=== PATIENT | male | born 1970 | race Caucasian/White ===

== ENCOUNTER 2017-10-05 07:58 | Observation (INO) | payer MEDICAID, SELFPAY ==
[2017-10-05] VITALS (8 sets, daily range): BP systolic 117–172; BP diastolic 51–95; PULSE 62–74; RESP 15–20; TEMP 36.4–37.4; O2SAT 93–99; BMI 34.2; BMI 34.7
--- NOTE | 2017-10-05 08:23 | EKG12_ITS ---
Test Reason : CP Blood Pressure : / mmHG Vent. Rate : 062 BPM Atrial Rate : 062 BPM P-R Int : 130 ms QRS Dur : 106 ms QT Int : 432 ms P-R-T Axes : 004 023 008 degrees QTc Int : 438 ms Normal sinus rhythm Normal ECG Confirmed by JT RAMIREZ ([id number]), video tape editor CARLOS BRUMFIELD ([id number]) on 10/10/2017 2:56:36 PM Referred By: GEOVANNI Confirmed By:JT RAMIREZ
[2017-10-05] MEDS: 0.9% Normal Saline 1,000 ML 125 ML IV ×2 (08:34→19:49)
[2017-10-05 08:43] LABS: Absolute Lymphocyte Count 1.96 X10^3/ul (0.83-4.51); Absolute Neutrophil Count 9.3 X10^3/uL (2.0-7.7); Basophil# 0.01 X10^3/uL; Basophil% 0.1 % (0-1); Eosinophil# 0.07 X10^3/uL; Eosinophils% 0.6 % (0-5); Hematocrit 43.2 % (40-54); Hemoglobin 15.1 g/dl (13.0-16.5); Lymphocyte # 1.96 X10^3/ul (4.0); Lymphocyte % 16.3 % (19-41); Mean Corpuscular Hgb 32.8 pg (27.0-32.0); Mean Corpuscular Volume 93.7 fL (80-94); Mean Platelet Vol. 10.5 fl (6.2-12.0); Monocyte# 0.68 X10^3/uL; Monocyte% 5.6 % (0-10); Neutrophil % 77.2 % (47-70); POSITIVE COUNT NO; POSITIVE DIFFERENTIAL NO; POSITIVE MORPHOLOGY NO; Platelet Count 264 K/mm3 (150-450); RBC Distribution Width CV 11.7 % (11.6-14.6); RBC Distribution Width SD 39.6 fl (35.1-43.9); Red Blood Count 4.61 M/mm3 (4.6-6.2)
[2017-10-05 09:00] LABS: AST(SGOT) 10 U/L (15-37); Alanine Aminotransfer ALT/SGPT 15 U/L (12-78); Albumin, Serum 3.4 g/dL (3.4-5.0); Alkaline Phosphatase 67 U/L (45-117); Anion Gap 8 (5-15); BUN 13 mg/dL (7-18); BUN/Creat Ratio 11.6 RATIO (10-20); Calcium,Total 8.1 mg/dL (8.5-10.1); Chloride 107 mmol/L (98-107); Creatinine, Serum 1.12 mg/dL (0.70-1.30); EST Glomerular Filtration Rate 75 mL/min (>60); Est Glom Filt Rate - Afr Amer 90 mL/min (>60); Globulin 3.4 g/dL (2.2-4.2); Glucose 120 mg/dL (70-110); Lipase 159 U/L (73-393); Potassium 3.3 mmol/L (3.5-5.1); Protein, Total 6.8 g/dL (6.4-8.2); Sodium Level 141 mmol/L (136-145)
--- NOTE | 2017-10-05 09:17 | ED.VISSUMM ---
- ER Visit Summary Date of Service: 10/05/17 Chief Complaint: [Abdominal pain] History of Present Illness: The patient is a 47 M [presents to the emergency department chief complaint of epigastric abdominal pain and burning that radiates into his chest. Patient symptoms started about 4 days ago. Patient was seen in the emergency department by myself 2 days ago for the same complaint and had a significant workup including labs and CT scan of the abdomen pelvis. Patient also states that prior to all the abdominal discomfort he developed a rash for which he was seen by his primary care physician and then went to [facility] as well for it. Patient tells me he was started on prednisone and something for the itching. Patient is also on omeprazole and I started him on Carafate after our initial encounter 2 days ago in the emergency department. Patient continues to vomit. Patient continues to have burning epigastric pain. He denies any chest pain. Patient was noted to have on CT scan a hiatal hernia and some thickening of the GE junction. Physical Examination: [HEENT-PERRLA, EOMI. Cranial nerves II through XII grossly intact. TMs clear. Mucous membranes moist. No adenopathy. Cardiovascular-regular rate and rhythm without murmur or ectopy Lungs-clear to auscultation, chest wall stable without crepitus or subcu emphysema Abdomen-normoactive bowel sounds, soft, patient has diffuse tenderness over the epigastric region with some guarding. There is no rebound, rigidity or perineal signs. Extremities-intact ?4, normal range of motion, normal pulses, atraumatic] Skin exam-patient has a erythematous red raised rash involving mostly the lower abdomen and back as well as lower extremities. Patient also has some of the rash noted on his neck and scalp. The rash is slightly pruritic. Test Results: [CBC with differential obtained showed a slightly elevated white count of 12.0. Hemoglobin 15, hematocrit 43, platelets 264. Chemistries unremarkable other than a slightly depressed potassium 3.3. LFTs were normal. Lipase was normal at 159. Troponin was less than 0.02. EKG showed sinus rhythm with rate of 62 bpm.] Emergency Department Course and Treatment: [Patient received Reglan in the emergency department and was started on a Protonix IV drip.] Treatment Plan: Patient will be admitted for further workup and evaluation of symptoms. [] Disposition: [Admit] Impression: [Abdominal pain Intractable vomiting Dermatitis-urticaria versus erythema multiforme] This note was generated with [email or web address] dictation software. It may contain incorrect words, spelling, and punctuation that were not noted in review of the chart prior to signing ED Disposition - Plan for ED Patient: Chief Complaint: Abd Pain Referrals: Geovanna Disla, FUEL CELL TEST ENGINEER-C [Primary Care Provider] -
--- NOTE | 2017-10-05 09:25 | ED.DCSUM_ITS ---
- ER Visit Summary Date of Service: 10/05/17 Chief Complaint: [Abdominal pain] History of Present Illness: The patient is a 47 M [presents to the emergency department chief complaint of epigastric abdominal pain and burning that radiates into his chest. Patient symptoms started about 4 days ago. Patient was seen in the emergency department by myself 2 days ago for the same complaint and had a significant workup including labs and CT scan of the abdomen pelvis. Patient also states that prior to all the abdominal discomfort he developed a rash for which he was seen by his primary care physician and then went to [facility] as well for it. Patient tells me he was started on prednisone and something for the itching. Patient is also on omeprazole and I started him on Carafate after our initial encounter 2 days ago in the emergency department. Patient continues to vomit. Patient continues to have burning epigastric pain. He denies any chest pain. Patient was noted to have on CT scan a hiatal hernia and some thickening of the GE junction. Physical Examination: [HEENT-PERRLA, EOMI. Cranial nerves II through XII grossly intact. TMs clear. Mucous membranes moist. No adenopathy. Cardiovascular-regular rate and rhythm without murmur or ectopy Lungs-clear to auscultation, chest wall stable without crepitus or subcu emphysema Abdomen-normoactive bowel sounds, soft, patient has diffuse tenderness over the epigastric region with some guarding. There is no rebound, rigidity or perineal signs. Extremities-intact ?4, normal range of motion, normal pulses, atraumatic] Skin exam-patient has a erythematous red raised rash involving mostly the lower abdomen and back as well as lower extremities. Patient also has some of the rash noted on his neck and scalp. The rash is slightly pruritic. Test Results: [CBC with differential obtained showed a slightly elevated white count of 12.0. Hemoglobin 15, hematocrit 43, platelets 264. Chemistries unremarkable other than a slightly depressed potassium 3.3. LFTs were normal. Lipase was normal at 159. Troponin was less than 0.02. EKG showed sinus rhythm with rate of 62 bpm.] Emergency Department Course and Treatment: [Patient received Reglan in the emergency department and was started on a Protonix IV drip.] Treatment Plan: Patient will be admitted for further workup and evaluation of symptoms. [] Disposition: [Admit] Impression: [Abdominal pain Intractable vomiting Dermatitis-urticaria versus erythema multiforme] This note was generated with [employer] dictation software. It may contain incorrect words, spelling, and punctuation that were not noted in review of the chart prior to signing ED Disposition - Plan for ED Patient: Chief Complaint: Abd Pain Referrals: Geovanna Disla, ABATEMENT WORKER-C [Primary Care Provider] -
[2017-10-05] MEDS: Metoclopramide 10 MG/2 ML Vial IV (09:42)
--- NOTE | 2017-10-05 09:44 | PCM.HP.STD ---
Problem List (1) Osteoarth NOS-unspec Status: Chronic Qualifiers: Osteoarthritis location: hip (2) Epigastric abdominal pain Status: Acute History of Present Illness Date of Admission: 10/05/17 Chief Complaint: burning epigastric and retrosternal chest pain The patient is a 47 year old M with a past medical history of osteoarthritis who presented with a five-day complaint of burning retrosternal chest pain. Pain does not have any association with position radiates up into his chest and into his epigastric region, and is aggravated by eating. Patient had associated vomiting and retching, and said he has been unable to eat for the past 5 days due to the symptoms. This is the first time he has had such complaints before and denies any history of ulcer or esophagitis. He denies taking any eppa-[id number] pain meds and only takes tramadol for his arthritis of the hip. He denies taking any recent antibiotics,NSAID use, or any potassium tablets or in fact any medication whatsoever. He vomits about 3-4 times daily and emesis is usually greenish or clear in nature. Of note he mentioned that he had had a couple of episodes of loose watery stools this morning. Emesis has never been blood tinged or coffee-ground in nature before. And also complains of a rash mainly over his lower abdomen and lower extremities which started after he fell and marked on his right side approximately 7 days ago. Rash has worsened over this period and is nonpruritic. He went to see his primary care doctor who gave him some cream to apply. Patient does not remember the name of this cream and cream did not help symptoms resolve. He has no history of allergies and does not remember buying any new clothes or using any new medications that could result in this rash or been in contact with any new material. He was seen in the emergency room 2 days ago for these complaints and a CAT scan done showed suspicion for hiatal hernia, axxcording to the ED doctor. He was sent home on prednisone and omeprazole but these did not relieve his symptoms and he presented today with the same complaints review of systems was negative for any fever any chills or any respiratory symptoms or shortness of breath or cough or wheezing. He denies any associated weight loss even though he has not been able to eat for the past 5 days. Past Medical History Past Medical History (Chronic Problems): Chronic Problems (Last Updated 10/02/17 @ 13:05 by Meagan Yu) Osteoarth NOS-unspec (Chronic) TIA (transient ischemic attack) (Chronic) ETOH abuse (Chronic) History of tobacco use (Chronic) Allergies Penicillins Allergy (Severe, Verified 10/05/17 08:02) Anaphylaxis Home Medications: Ambulatory Orders Medication Instructions Recorded Aspirin [Aspirin, Baby] 81 mg PO DAILY@0800 #30 tab.chew 03/01/15 Trazodone HCl [Desyrel] 100 mg PO QHS 10/03/17 TraMADol [Ultram (G)] 50 mg PO Q8H PRN PRN 10/05/17 Surgical History: noncontributory, - - Arthroscopic right knee surgery Smoking Status: Heavy Smoker (>10/day) Tobacco Use: Cigarettes Alcohol: None Drugs: None - *Family History Maternal Family History: Family History (Last Reviewed 10/05/17 @ 15:15 by Jacob Shine MD) Mother CVA (cerebral vascular accident) History Items: Diabetes, Heart Disease, Hypertension, No pertinent history, - - Denies any family history of coronary artery disease nor congestive heart failure Paternal Family History: Family History (Last Reviewed 10/05/17 @ 15:15 by Jacob Shine MD) Mother CVA (cerebral vascular accident) History Items: No pertinent history Review of Systems Constitutional: Reports: Malaise, Weakness. Denies: Chills, Fever, Weight Change Eyes: Denies: Blurred vision HEENT: Reports: Dysphasia. Denies: Difficulty Hearing, Difficulty Swallowing Cardiovascular: Denies: Chest Pain, Claudication, Chest Pressure, Chest Tightness, Edema, Orthopnea, Palpitations, Syncope Respiratory: Denies: Cough, Hemoptysis, Pleuritic Pain, Shortness of Breath, Shortness of breath at rest, Wheezing Gastrointestinal: Reports: Abdominal Pain, Diarrhea, Nausea, Vomiting. Denies: Constipation, Dyspepsia, Hematemesis, Hematochezia, Melena Genitourinary: Denies: Dysuria, Frequency Musculoskeletal: Reports: Joint Pain - hip pain. Denies: Arm Pain, Back Pain, Joint stiffness, Joint swelling, Leg Pain Skin: Reports: Rash. Denies: Dryness, Jaundice Neurological: Denies: Balance problems, Blurred vision, Difficulty swallowing, Numbness Psychiatric: Denies: Anxiety, Depression Endocrine: Denies: Change in Body Habitus, Polydipsia Hematologic/ Lymphatic: Denies: Adenopathy, Anemia VTE Information - Inpt Only VTE Present on Admission: No VTE Mechan Device Prophylaxis: None VTE Pharm Prophylaxis ordered?: Yes Patient Problems: Active and Suspected Problems (Last Updated 10/02/17 @ 13:05 by Meagan Yu) Abn findings-GI tract (Acute) - Physical Exam General: Alert, Oriented x3, Cooperative, - - Patient in moderate distress, holding bag which contains some greenish emesis during review. HEENT: Atraumatic, EOMI, Normocephalic Oral: Moist Mucosa, No Gingival or Mucosal Lesions/ Ulcerations Neck: Supple, No JVD, Trachea Midline Lungs: Clear to auscultation, Normal air movement, No rhonchi, No wheeze Cardiovascular: Regular rate, Regular Rhythm, Normal S1, Normal S2, No murmurs Abdomen: Bowel Sounds Present, Soft, Non-Distended, No Hepato-splenomegaly, Tender - Had mild tenderness in epigastric region. Extremities: No clubbing, No cyanosis, No Calf Tenderness Skin: Rash Present - Had erythematous, targetoid, macular rash with central area of clearing. Rash was distributed mainly in the lower abdominal area, and on the upper part of lower extremities. Rash was mainly over the anterior and medial portions of his thighs. It also extended towards his flank areas mainly on the right. Musculoskeletal: No Tenderness to Palpation of Joints or Extremities, No Muscle Wasting Lymphatic: No Cervical, Supraclavicular, or Inguinal Adenopathy Neurological: Cranial nerves II-XII grossly intact, Neuro grossly intact, Motor Exam 5/5 strength throughout Psych/Mental Status: Normal Affect, Appropriate, Alert and oriented to time, place, person, mood and affect Vital Signs Temp Pulse Resp BP Pulse Ox 97.6 F L 67 15 172/90 H 99 10/05/17 07:59 10/05/17 09:43 10/05/17 09:43 10/05/17 09:43 10/05/17 09:43 Oxygen Delivery Method Room Air Weight: 267 lb 3.204 oz Body Mass Index (BMI) 34.2 Finger Stick Blood Glucose 76 Laboratory Tests Past 24 Hrs 10/05/17 10/05/17 08:36 08:36 WBC 12.0 H RBC 4.61 Hgb 15.1 Hct 43.2 MCV 93.7 MCH 32.8 H MCHC 35.0 RDW 11.7 RDW Differential 39.6 Plt Count 264 MPV 10.5 Immature Gran % (Auto) 0.200 Neut % (Auto) 77.2 H Lymph % (Auto) 16.3 L [place] % (Auto) 5.6 Eos % (Auto) 0.6 Baso % (Auto) 0.1 Absolute Neuts (auto) 9.3 H Absolute Lymphs (auto) 1.96 Total Counted Not Reportable Sodium 141 Potassium 3.3 L Chloride 107 Carbon Dioxide 26.0 Anion Gap 8 BUN 13 Creatinine 1.12 Estim Creat Clear Calc 94.80 Est GFR (MDRD) Af Amer 90 Est GFR (MDRD) Non-Af 75 BUN/Creatinine Ratio 11.6 Glucose 120 H Calcium 8.1 L Total Bilirubin 0.60 AST 10 L ALT 15 Alkaline Phosphatase 67 Troponin I < 0.02 Total Protein 6.8 Albumin 3.4 Globulin 3.4 Albumin/Globulin Ratio 1.0 Lipase 159 Assessment/Plan Active and Suspected Problems (Last Updated 10/02/17 @ 13:05 by Meagan Yu) Abn findings-GI tract (Acute) This is a 47-year-old male presenting with the 5 day history of epigastric and retrosternal chest pain and a 6 day history of a rash over his lower abdomen and upper thighs after falling in mud 6 days ago. 1. Epigastric and retrosternal chest pain differentials include esophagitis, gastritis, and peptic ulcer disease -For assistance of such pain and is associated with bilious or clear vomiting -Vitals stable except for elevated blood pressure which may be due to epigastric and retrosternal chest pain. -Labs reviewed and were within normal limits. -CT abdomen done in the ED 2 days ago showed hiatal hernia with associated circumferential wall thickening of distal esophagus and GE junction. Focal circumferential wall thickening of sigmoid colon. Colonic diverticulosis -We will admit to [facility] floor with telemetry. -We will keep n.p.o. for now due to vomiting. -We will give IV fluid dextrose saline at 100 cc/h. -We will give IV pantoprazole 40 mg twice daily and IV Zofran for nausea and vomiting as needed. -We will get gastroenterology or general surgery consult as patient likely needs an endoscopy to confirm diagnosis- General surgery Dr Shine consulted. -We will hold home medication of aspirin for now due to epigastric pain. -Home meds reviewed. Other than aspirin no other likely cause of this condition. 2. Erythematous rash suggestive of erythema multiforme. -No clear precipitant identified. Patient denies any history of any medication use recently or any possible contact allergies. -Given a cream by his PCP which he cannot remember the name of. Was given p.o. prednisone was in the ED a couple of days ago. -This is usually self-limited and but pauses in the hospital will give topical steroid cream and IV Benadryl to help with symptom relief. -We will refer to cloth desizing range tender of the discharge. 3. Hypokalemia - K is 3.3 today, likely due to excessive vomiting. -will replace and monitor. 3. Osteoarthritis of the hip. -On tramadol for pain. Will continue. 4. DVT prophylaxis -Heparin SC 5. GI prophylaxis -On IV pantoprazole as documented above. 10/05/17 ~ 3pm I was called by nurse to see patient as the rash is worsening. Upon review, rash had spread up towards his torso. The targetoid, erythematous lesions were more coalesced and now formed welts, and was pruritic. In light of worsening erythema multiforme, I will start iV prednisone 60mg q6, and IV acyclovir due to the fact that HSV is a common cause of EM. Patient insists it all started only after he fell in mud, but I will still cover empirically with acyclovir. If patient deteriorates any further, and rash keeps worsening, he will warrant transfer to a tertiary center for further care. Code Visit Inpatient E&M: [id number] Init Hosp L3
[2017-10-05] MEDS: Ondansetron 4 MG/2 ML Vial IV (11:14)
--- NOTE | 2017-10-05 11:22 | NURSING ---
pt arrived from ED with protonix IV 80mg in 80l infusing on IVAC pump. It is to run over 10 hrs.
--- NOTE | 2017-10-05 14:44 | NURSING ---
Dr. Shine came to see pt. I want to scope him tomorrow. This nurse was told to call Endo nurse and try to fit him in a packed scheduled for tomorrow. This nurse called and spoke with Yamel Hunter RN photonics engineer for Endo and informed her of what Dr. Shine stated.
[2017-10-05] MEDS: Hydrocortisone 2.5% Crm 1 APPLIC TOPICAL (15:06)
--- NOTE | 2017-10-05 15:12 | PCM.CONS.GEN ---
Problem List (1) Abn findings-GI tract Status: Acute (2) Epigastric abdominal pain Status: Acute Reason for Consult Date of Consultation: 10/05/17 History of Present Illness: The patient is a 47 year old M with a past medical history of osteoarthritis who presented with a five-day complaint of burning retrosternal chest pain. Pain does not have any association with position radiates up into his chest and into his epigastric region, and is aggravated by eating. Patient had associated vomiting and retching, and said he has been unable to eat for the past 5 days due to the symptoms. This is the first time he has had such complaints before and denies any history of ulcer or esophagitis. He denies taking any ecax-icg-fmxccih pain meds and only takes tramadol for his arthritis of the hip. He denies taking any recent antibiotics,NSAID use, or any potassium tablets or in fact any medication whatsoever. He vomits about 3-4 times daily and emesis is usually greenish or clear in nature. Of note he mentioned that he had had a couple of episodes of loose watery stools this morning. Emesis has never been blood tinged or coffee-ground in nature before. And also complains of a rash mainly over his lower abdomen and lower extremities which started after he fell and marked on his right side approximately 7 days ago. Rash has worsened over this period and is nonpruritic. He went to see his primary care doctor who gave him some cream to apply. Patient does not remember the name of this cream and cream did not help symptoms resolve. He has no history of allergies and does not remember buying any new clothes or using any new medications that could result in this rash or been in contact with any new material. He was seen in the emergency room 2 days ago for these complaints and a CAT scan done showed suspicion for hiatal hernia. He was sent home on prednisone and omeprazole but these did not relieve his symptoms and he presented today with the same complaints review of systems was negative for any fever any chills or any respiratory symptoms or shortness of breath or cough or wheezing. He denies any associated weight loss even though he has not been able to eat for the past [address] Sue Nick is consulting me for evaluation of epigastric abdominal pain and abnormal findings of the GI tract on a CAT scan. Past Medical History Past Medical History (Chronic Problems): Chronic Problems (Last Updated 10/02/17 @ 13:05 by Meagan Yu) Osteoarth NOS-unspec (Chronic) TIA (transient ischemic attack) (Chronic) ETOH abuse (Chronic) History of tobacco use (Chronic) Allergies Penicillins Allergy (Severe, Verified 10/05/17 08:02) Anaphylaxis Home Medications: Ambulatory Orders Medication Instructions Recorded Aspirin [Aspirin, Baby] 81 mg PO DAILY@0800 #30 tab.chew 03/01/15 Trazodone HCl [Desyrel] 100 mg PO QHS 10/03/17 TraMADol [Ultram (G)] 50 mg PO Q8H PRN PRN 10/05/17 Surgical History: noncontributory, - - Arthroscopic right knee surgery Smoking Status: Light Smoker (<10/day) Tobacco Use: Cigarettes Alcohol: None Drugs: None - *Family History Maternal Family History: Family History (Last Reviewed 10/05/17 @ 15:15 by Jacob Shine MD) Mother CVA (cerebral vascular accident) History Items: Diabetes, Heart Disease, Hypertension, No pertinent history, - - Denies any family history of coronary artery disease nor congestive heart failure Paternal Family History: Family History (Last Reviewed 10/05/17 @ 15:15 by Jacob Shine MD) Mother CVA (cerebral vascular accident) History Items: No pertinent history Review of Systems Constitutional: Reports: Malaise, Weakness, Fatigue Eyes: Denies: Blurred vision, Pain, Redness, Vision Change HEENT: Denies: Dysphasia, Ear Pain, Eye Pain, Head Aches, Hearing Changes, Sore Throat Cardiovascular: Denies: Chest Pain, Chest Pressure, Chest Tightness, Palpitations Respiratory: Denies: Cough, Hemoptysis, Shortness of breath at rest, Shortness of breath upon exertion, Wheezing Gastrointestinal: Reports: Abdominal Pain, Nausea, Vomiting Genitourinary: Denies: Dysuria, Frequency, Hematuria, Urgency Musculoskeletal: Reports: Muscle pain Skin: Reports: Lesions, Pruritis, Rash. Denies: Wounds Neurological: Denies: Change in Speech, Confusion, Numbness, Tingling, Seizures Psychiatric: Denies: Anxiety, Depression Endocrine: Denies: Heat/ Cold Intolerance, Polydipsia, Polyuria Hematologic/ Lymphatic: Denies: Adenopathy, Easy Bruising Patient Problems: Active and Suspected Problems (Last Updated 10/02/17 @ 13:05 by Meagan Yu) Abn findings-GI tract (Acute) - Physical Exam General: Alert, Oriented x3 Lungs: Clear to auscultation Cardiovascular: Regular rate, Regular Rhythm, No murmurs Abdomen: Bowel Sounds Present, Soft, Non-Distended Musculoskeletal: No Tenderness to Palpation of Joints or Extremities Vital Signs Temp Pulse Resp BP Pulse Ox 98.4 F 69 20 H 127/51 H 98 10/05/17 10:57 10/05/17 14:00 10/05/17 10:57 10/05/17 10:57 10/05/17 10:57 Oxygen Delivery Method Room Air Weight: 270 lb Body Mass Index (BMI) 34.7 Assessment/Plan Active and Suspected Problems (Last Updated 10/02/17 @ 13:05 by Meagan Yu) Abn findings-GI tract (Acute) Assessment abnormal findings of GI tract, epigastric abdominal discomfort Plan: At this point given the fact that the CAT scan shows some thickening of the distal esophagus from an unknown etiology I believe the best thing to do here is to perform an esophagogastroduodenoscopy on him tomorrow. Risk benefits to this procedure were reviewed in great detail with the patient and the patient agrees to proceed. My findings will be sent back to Dr. Sue Nick via electronic medical record. Code Visit Office Visits / Consults: [id number] IP Consult L3
--- NOTE | 2017-10-05 15:21 | NURSING ---
This nurse went to apply hydrocortisone cream to rash, assessing the rash appeared worse. Rash looked worse then on initial assessment and looked like welts. Called and spoke with Dr. James and informed her. She is coming up to take a look at him.
--- NOTE | 2017-10-05 15:32 | NURSING ---
Dr. James here and agrees with rash being welts now. going to order steriods.
[2017-10-05] MEDS: MethylPREDNISolone 125 MG/2 ML Vial 60 MG IV (16:32)
[2017-10-05] MEDS: DiphenhydrAMINE 50 MG/ML Syringe 25 MG IV (16:34)
[2017-10-05] MEDS: DEXTROSE 5% IV ×2 (16:46→22:52)
[2017-10-05] MEDS: ACYCLOVIR IV ×2 (16:46→22:52)
[2017-10-06] VITALS (16 sets, daily range): BP systolic 118–140; BP diastolic 57–79; PULSE 54–74; RESP 14–18; TEMP 36.2–37.4; O2SAT 62–98; BMI 34.7
--- NOTE | 2017-10-06 | IMM_PTH ---
PATIENT: JOSE ALBERTO SAINZ LOC: MS2 U#:[id number] AGE/SX: 47/M ROOM: [facility] [place] RE10/05/[address]: Dr. Michelle Solis MD : 1970 BED: 1 DIS: 10/07/2017 SPEC #: [id number] RECD: 10/07/17 14:04 STATUS: DIO REQ #: [id number] JOSH: 10/06/17 00:[address]: Jacob Shine DEPT: IMMUNOHISTOCHEMISTRY RECD BY: Pattie Denise ENTERED: 10/07/17 14:04 SP TYPE: IMMUNO OTHR DR: MD Dr. Lisa Ramirez MD Jessica Witmer, FIRE SAFETY MANAGER-C Tissues: Stomach, NOS Procedures: H Pylori (initial) Comments: @ Ordering doctor for H.PYLORI edited from to @ by JENIFFER at 10/07/17 1408 @ Submitting doctor edited from to DR.DPEABO Isaac by JENIFFER at 10/07/17 1408 PHYSICIAN & [place] [phone] SPECIMEN INFORMATION: Tissue Source: Antral biopsy Clinical Info: Abnormal CT Specimen Number: [id number] CPT code: 11344 METHODOLOGY: Deparaffinized sections of prefer/formalin-fixed tissue or PAP/DQ stained slides are incubated with monoclonal/polyclonal antibodies/oligonucleotide probes. Localization is made via biotin free immunoperoxidase method. Appropriate controls are performed and reacted as expected. Results on target cell population are indicated in the following table: RESULTS: ANTIBODY / CLONE RESULT H Pylori (polyclonal) negative These tests were developed and their performance characteristics determined by [facility]. They may not have been cleared or approved by the [place].S. Food and Drug Administration. The FDA has determined that such clearance or approval is not necessary. INTERPRETATION: Antral biopsy: Negative for Helicobacter pylori organisms. AM:chandu 10/08/17
--- NOTE | 2017-10-06 | GASB_PTH ---
PATIENT: JOSE ALBERTO SAINZ LOC: MS2 U#:[id number] AGE/SX: 47/M [place] [facility] [place]: Dr. Michelle Solis MD : 1970 BED: 1 DIS: 10/07/2017 SPEC #: [id number] RECD: 10/06/17 10:28 STATUS: DIO REQ #: [id number] JOSH: 10/06/17 00:[address]: Jacob Shine DEPT: SURGICAL PATHOLOGY RECD BY: Yazan Christina ENTERED: 10/06/17 11:54 SP TYPE: Gastric Bx OTHR DR: MD Dr. Dominguez Dao MD Jessica Witmer, ENERGY SCHEDULER-C Tissues: Gastric mucous membrane Procedures: Surgery Specimen Level IV Comments: @ Ordering doctor for SUIV edited from to @ by JENIFFER at 10/06/17 1611 @ Submitting doctor edited from to DR.DPEABO Isaac by JENIFFER at 10/06/17 1615 HEADER OPERATION: EGD with biopsy PRE-OP DIAGNOSIS: Abnormal CT TISSUE SUBMITTED: Antral biopsy MICROSCOPIC DIAGNOSIS Gastric antrum, biopsy: Gastritis. AM:chandu 10/07/17 COMMENT The results of immunohistochemistry for Helicobacter pylori will be reported separately ([id number]). MICROSCOPIC DESCRIPTION Slides are reviewed. Sections show small collections and groups of plasma cells in the mucosa. Active inflammation is not present. These findings are consistent with mild chronic gastritis. GROSS DESCRIPTION Received in fixative is one container labeled with the patient's name and designated antral biopsy. The specimen consists of one irregular fragment of light yousif soft tissue that measures 0.6 x 0.2 x 0.1 cm. The specimen is totally submitted in one cassette. / AM:chandu 10/06/17 TC:3 CPT: 08858
[2017-10-06] MEDS: MethylPREDNISolone 125 MG/2 ML Vial 60 MG IV ×4 (00:45→17:28)
[2017-10-06] MEDS: 0.9% Normal Saline 1,000 ML 125 ML IV ×2 (03:23→17:24)
[2017-10-06 06:15] LABS: Absolute Lymphocyte Count 0.67 X10^3/ul (0.83-4.51); Absolute Neutrophil Count 7.7 X10^3/uL (2.0-7.7); Eosinophil# 0.01 X10^3/uL; Eosinophils% 0.1 % (0-5); Hematocrit 39.5 % (40-54); Hemoglobin 13.7 g/dl (13.0-16.5); Lymphocyte # 0.67 X10^3/ul (4.0); Lymphocyte % 7.8 % (19-41); Mean Corp Hgb Conc 34.7 g/gl (32-36); Mean Corpuscular Hgb 32.9 pg (27.0-32.0); Mean Corpuscular Volume 94.7 fL (80-94); Mean Platelet Vol. 10.4 fl (6.2-12.0); Monocyte# 0.17 X10^3/uL; Neutrophil # 7.72 X10^3/uL (2.7-7.7); Platelet Count 225 K/mm3 (150-450); RBC Distribution Width CV 11.7 % (11.6-14.6); RBC Distribution Width SD 39.9 fl (35.1-43.9); Red Blood Count 4.17 M/mm3 (4.6-6.2); White Blood Count 8.6 K/mm3 (4.4-11.0)
[2017-10-06 06:22] LABS: Anion Gap 9 (5-15); BUN 12 mg/dL (7-18); BUN/Creat Ratio 12.9 RATIO (10-20); Chloride 106 mmol/L (98-107); Creatinine, Serum 0.93 mg/dL (0.70-1.30); EST Glomerular Filtration Rate 92 mL/min (>60); Est Glom Filt Rate - Afr Amer 112 mL/min (>60); Estimated Creatinine Clearance 114.17 ml/min; Glucose 124 mg/dL (70-110); Potassium 3.8 mmol/L (3.5-5.1); Sodium Level 139 mmol/L (136-145)
[2017-10-06 06:30] LABS: POSITIVE COUNT NO; POSITIVE DIFFERENTIAL NO; POSITIVE MORPHOLOGY NO
[2017-10-06] MEDS: DEXTROSE 5% IV ×3 (06:58→21:35)
[2017-10-06] MEDS: ACYCLOVIR IV ×3 (06:58→21:35)
--- NOTE | 2017-10-06 09:23 | PCM.OPRPT ---
Problem List (1) Abn findings-GI tract Status: Acute (2) Epigastric abdominal pain Status: Acute (3) Gastritis Status: Acute Qualifiers: Gastritis type: unspecified gastritis Chronicity: acute Gastritis bleeding: without bleeding Qualified Code(s): K29.00 - Acute gastritis without bleeding Report of Operation Date of Procedure: 10/06/17 Pre-Operative Diagnosis: Abnormal findings on GI tract from CAT scan. Epigastric abdominal pain Post-Operative Diagnosis: Same plus gastritis Surgery/Procedure Performed:: Esophagogastroduodenoscopy with biopsy tunnel drier operator: None Type of Anesthesia:: MAC Anesthesiologist: Vini Malhotra Specimen's removed: Biopsy for H. pylori Description of Procedure: Patient was brought into the endoscopy suite. Back of his throat was sprayed with Cetacaine spray. Bite block was placed. He was placed in the left lateral decubitus position. He was given graded anesthesia. The scope was inserted in the back of the oropharynx. The scope was directed down through the esophagus into the stomach and into the duodenum without difficulty. Operative findings: 1. Duodenum: Normal appearance no mass lesions no ulcerations. 2. Stomach: Significant gastritis throughout the entire stomach. Biopsy for H. pylori was obtained. Retroflexion showed a small hiatal hernia. There is no signs of mass lesion there was no signs of bleeding. 3. Esophagus: Normal appearance no mass lesions no signs of esophagitis no signs of abnormalities whatsoever. The Z line was at 40 cm and looked entirely normal except for the small hiatal hernia. - Admit VTE Documentation VTE Present on Admission: No VTE Mechan Device Prophylaxis: None VTE Pharm Prophylaxis ordered?: No Reason prophylaxis not ordered:: Treatment Not Indicated Code Visit 40xxx-49xxx: 03988 Egd biopsy single/multiple
--- NOTE | 2017-10-06 09:28 | OP.PCM_ITS ---
Problem List (1) Abn findings-GI tract Status: Acute (2) Epigastric abdominal pain Status: Acute (3) Gastritis Status: Acute Qualifiers: Gastritis type: unspecified gastritis Chronicity: acute Gastritis bleeding: without bleeding Qualified Code(s): K29.00 - Acute gastritis without bleeding Report of Operation Date of Procedure: 10/06/17 Pre-Operative Diagnosis: Abnormal findings on GI tract from CAT scan. Epigastric abdominal pain Post-Operative Diagnosis: Same plus gastritis Surgery/Procedure Performed:: Esophagogastroduodenoscopy with biopsy technical specialist cytogenetics: None Type of Anesthesia:: MAC Anesthesiologist: Vini Malhotra Specimen's removed: Biopsy for H. pylori Description of Procedure: Patient was brought into the endoscopy suite. Back of his throat was sprayed with Cetacaine spray. Bite block was placed. He was placed in the left lateral decubitus position. He was given graded anesthesia. The scope was inserted in the back of the oropharynx. The scope was directed down through the esophagus into the stomach and into the duodenum without difficulty. Operative findings: 1. Duodenum: Normal appearance no mass lesions no ulcerations. 2. Stomach: Significant gastritis throughout the entire stomach. Biopsy for H. pylori was obtained. Retroflexion showed a small hiatal hernia. There is no signs of mass lesion there was no signs of bleeding. 3. Esophagus: Normal appearance no mass lesions no signs of esophagitis no signs of abnormalities whatsoever. The Z line was at 40 cm and looked entirely normal except for the small hiatal hernia. - Admit VTE Documentation VTE Present on Admission: No VTE Mechan Device Prophylaxis: None VTE Pharm Prophylaxis ordered?: No Reason prophylaxis not ordered:: Treatment Not Indicated Code Visit 40xxx-49xxx: 65612 Egd biopsy single/multiple
--- NOTE | 2017-10-06 10:07 | NURSING ---
0800, pt off unit via bed for scheduled procedure
[2017-10-06] MEDS: Hydrocortisone 2.5% Crm 1 APPLIC TOPICAL ×2 (10:56→21:34)
[2017-10-06] MEDS: 0.9% NaCl Peripheral Flush Adult/Peds IV ×3 (10:57→16:44)
--- NOTE | 2017-10-06 14:53 | CASEMGMT ---
See RN CM assessment link. No dc needs identified @ this time. Kathie BSN RN ACM
--- NOTE | 2017-10-06 16:22 | PCM.DC ---
- Discharge Diagnoses Current Active Problems: Current Active and Chronic Problems (Last Updated 10/02/17 @ 13:05 by Meagan Yu) Abn findings-GI tract (Acute) Gastritis (Acute) You will use the following diet at home:: Regular Discharge Activity: May not drive while taking narcotic pain medications. Allergies/Adverse Reactions: Allergies Penicillins Allergy (Severe, Verified 10/05/17 08:02) Anaphylaxis Medications to take at Discharge Aspirin [Aspirin, Baby] 81 mg PO DAILY@0800 #30 tab.chew 03/01/15 Trazodone HCl [Desyrel] 100 mg PO QHS 10/03/17 TraMADol [Ultram] 50 mg PO Q8H PRN PRN 10/05/17 HydrOXYzine ANAND [Vistaril] 25 mg PO Q6 PRN #20 capsule 10/06/17 Hydrocortisone 2.5% Crm [Hytone] 1 applic TOPICAL BID #2 tube 10/06/17 Pantoprazole Sodium [Protonix] 40 mg PO DAILY #30 tab 10/06/17 The following prescriptions were given: Pantoprazole Sodium [Protonix] 40 mg PO DAILY #30 tab Hydrocortisone 2.5% Crm [Hytone] 1 applic TOPICAL BID #2 tube Primary Care Physician: Geovanna Disla, QUARTER INSPECTOR-C [Primary Care Provider] - Please follow up with your Primary Care Physician in: in 2 weeks Please Follow Up With: Jacob Shine MD When: in 3-4 weeks
--- NOTE | 2017-10-06 16:23 | PCM.DC.SUM ---
<Dominguez Zarate - Last Filed: 10/06/17 18:29> Discharge Date and Diagnosis - Problem List Patient Problems: Active and Suspected Problems (Last Updated 10/02/17 @ 13:05 by Meagan Yu) Abn findings-GI tract (Acute) Gastritis (Acute) Date of Admission: 10/05/17 - Primary Discharge Diagnosis Active and Suspected Problems (Last Updated 10/02/17 @ 13:05 by Meagan Yu) Abn findings-GI tract (Acute) Gastritis (Acute) - Secondary Discharge Diagnosis Chronic Problems (Last Updated 10/02/17 @ 13:05 by Meagan Yu) Osteoarth NOS-unspec (Chronic) TIA (transient ischemic attack) (Chronic) ETOH abuse (Chronic) History of tobacco use (Chronic) Hospital Course and Treatment Operations: None Summary of Care Provided: The patient is a 47 year old M [] Discharge Activity: May not drive while taking narcotic pain medications. Home Medications: Medications to take at Discharge Aspirin [Aspirin, Baby] 81 mg PO DAILY@0800 #30 tab.chew 03/01/15 Trazodone HCl [Desyrel] 100 mg PO QHS 10/03/17 TraMADol [Ultram] 50 mg PO Q8H PRN PRN 10/05/17 HydrOXYzine ANAND [Vistaril] 25 mg PO Q6 PRN #20 capsule 10/06/17 Hydrocortisone 2.5% Crm [Hytone] 1 applic TOPICAL BID #2 tube 10/06/17 Pantoprazole Sodium [Protonix] 40 mg PO DAILY #30 tab 10/06/17 Following Prescrptions Were Given to Patient: Pantoprazole Sodium [Protonix] 40 mg PO DAILY #30 tab Hydrocortisone 2.5% Crm [Hytone] 1 applic TOPICAL BID #2 tube Primary Care Physician: Geovanna Disla NP-C [Primary Care Provider] - Please follow up with your Primary Care Physician in: in 2 weeks Please Follow Up With: Jacob Shine MD When: in 3-4 weeks <Michelle Solis - Last Filed: 10/07/17 12:29> Discharge Date and Diagnosis - Primary Discharge Diagnosis Active and Suspected Problems (Last Updated 10/02/17 @ 13:05 by Meagan Yu) Abn findings-GI tract (Acute) Gastritis (Acute) - Secondary Discharge Diagnosis Chronic Problems (Last Updated 10/02/17 @ 13:05 by Meagan Yu) Osteoarth NOS-unspec (Chronic) TIA (transient ischemic attack) (Chronic) ETOH abuse (Chronic) History of tobacco use (Chronic) Hospital Course and Treatment Summary of Care Provided: The patient is a 47 year old M []
[2017-10-06] MEDS: Ondansetron 4 MG/2 ML Vial IV (16:44)
--- NOTE | 2017-10-06 18:29 | PN_ITS ---
Patient Problems: Active and Suspected Problems (Last Updated 10/02/17 @ 13:05 by Meagan Yu) Abn findings-GI tract (Acute) Gastritis (Acute) Subjective: Patient had EGD today. EGD shows significant gastritis throughout the stomach. Biopsy for H. pylori was taken. Small hiatus hernia. No signs of bleeding/ mass lesion. Esophagus normal. Normal duodenum. Vitals/I&O's: Vital Signs Temp Pulse Resp BP Pulse Ox 98.3 F 64 14 135/62 H 97 10/06/17 14:44 10/06/17 14:44 10/06/17 14:44 10/06/17 14:44 10/06/17 14:44 Oxygen Delivery Method Room Air Weight: 270 lb Body Mass Index (BMI) 34.7 Intake and Output for Last 24 Hours 10/04/17 10/05/17 10/06/17 23:59 23:59 23:59 Intake Total 727 / 727 4356 / 4356 Output Total 1750 / 1750 Balance 727 / 727 2606 / 2606 General: Alert, Oriented x3, Cooperative HEENT: Atraumatic, PERRLA, EOMI, Normocephalic Neck: Supple, No JVD, Negative Carotid Bruits Lungs: Clear to auscultation, Normal air movement, No rhonchi, No wheeze, No rales Cardiovascular: Regular rate, Regular Rhythm, Normal S1, Normal S2, No murmurs Abdomen: Bowel Sounds Present, Soft, Non Tender, Non-Distended Extremities: No edema, Capillary Refill Less than 3 Seconds Skin: Rash Present - Erythematous target lesions were more coalesced and welt and pruritic. Musculoskeletal: No Tenderness to Palpation of Joints or Extremities Neurological: Cranial nerves II-XII grossly intact Psych/Mental Status: Normal Affect, Appropriate Laboratory Results 10/06/17 05:25: Sodium 139, Potassium 3.8, Chloride 106, Carbon Dioxide 24.0, Anion Gap 9, BUN 12, Creatinine 0.93, Estim Creat Clear Calc 114.17, Est GFR ( MDRD) Af Amer 112, Est GFR (MDRD) Non-Af 92, BUN/Creatinine Ratio 12.9, Glucose 124 H, Calcium 8.0 L 10/06/17 05:25: WBC 8.6, RBC 4.17 L, Hgb 13.7, Hct 39.5 L, MCV 94.7 H, MCH 32.9 H, MCHC 34.7, RDW 11.7, RDW Differential 39.9, Plt Count 225, MPV 10.4, Immature Gran % (Auto) 0.100, Neut % (Auto) 90.0 H, Lymph % (Auto) 7.8 L, Rusk % (Auto) 2.0, Eos % (Auto) 0.1, Baso % (Auto) 0.0, Absolute Neuts (auto) 7.7, Absolute Lymphs (auto) 0.67 L, Total Counted Not Reportable Current Medications Enoxaparin Sodium (Lovenox) 40 mg SC DAILY@1000 [facility] Last Admin: 10/06/17 03:24 Dose: Not Given Hydralazine HCl (Apresoline) 5 mg IV Q6H PRN PRN PRN Reason: hypertension Hydrocortisone (Hytone) 1 applic TOPICAL BID [facility] PRN Reason: Protocol Last Admin: 10/06/17 10:56 Dose: 1 applicatio Hydroxyzine Pamoate (Vistaril) 25 mg PO Q6 [facility] Last Admin: 10/06/17 11:57 Dose: 25 mg Sodium Chloride () 1,000 mls @ 125 mls/hr IV .Q8H [facility] Last Admin: 10/06/17 17:24 Dose: 125 mls/hr Pantoprazole Sodium 40 mg/ N/A 10 mls @ 300 mls/hr IV Q12 [facility] Last Admin: 10/06/17 10:56 Dose: 300 mls/hr Acyclovir Sodium 820 mg/ (Dextrose) 266.4 mls @ 266.4 mls/hr IV Q8 [facility] Stop: 10/08/17 06:59 Last Admin: 10/06/17 14:38 Dose: 266.4 mls/hr Magnesium Hydroxide (Milk Of Magnesia) 30 ml PO DAILY PRN PRN PRN Reason: Constipation Methylprednisolone (Solu-Medrol) 60 mg IV Q6 [facility] Stop: 10/08/17 12:01 Last Admin: 10/06/17 17:28 Dose: 60 mg Ondansetron HCl (Zofran) 4 mg IV Q6H PRN PRN PRN Reason: NAUSEA/VOMITING Last Admin: 10/06/17 16:44 Dose: 4 mg Sodium Chloride () 5 - 30 ml IV UD PRN PRN Reason: SALINE FLUSH Last Admin: 10/06/17 16:44 Dose: 10 ml Tramadol HCl (Ultram (G)) 50 mg PO Q8H PRN PRN PRN Reason: PAIN Last Admin: 10/06/17 17:23 Dose: 50 mg Trazodone HCl (Desyrel) 100 mg PO QHS [facility] Last Admin: 10/05/17 22:12 Dose: 100 mg Assessment/Plan Active and Suspected Problems (Last Updated 10/02/17 @ 13:05 by Meagan Yu) Abn findings-GI tract (Acute) Gastritis (Acute) This is a 47-year-old male presenting with the 5 day history of epigastric and retrosternal chest pain and a 6 day history of a rash over his lower abdomen and upper thighs after falling in mud 6 days ago. 1. Epigastric/retrosternal chest pain due to diffuse gastritis: Patient had EGD today. EGD showed diffuse gastritis and a small hiatus hernia otherwise negative. H. pylori biopsy was taken. Currently on IV PPI. Patient was supposed to be discharged but after starting meal he developed abdominal pain, nausea. Patient was instructed to have soft bland carb diet but he took meet loaf and cheese. Discharge is canceled. 2. Erythematous rash suggestive of erythema multiform E: Patient is on steroid hydrocortisone 2.5% topical cream. Benadryl as needed for itching. 3. Hypokalemia: Low potassium: Being replaced. Other chronic comorbidities including osteoarthritis of the hip: On tramadol. DVT prophylaxis on heparin 500 subcu areas twice daily. Code Visit Inpatient E&M: 19396 Subs Hosp L2
[2017-10-07] VITALS: PULSE 63
[2017-10-07] MEDS: 0.9% NaCl Peripheral Flush Adult/Peds IV ×2 (00:01→06:04)
[2017-10-07] MEDS: Ondansetron 4 MG/2 ML Vial IV (00:01)
[2017-10-07] MEDS: MethylPREDNISolone 125 MG/2 ML Vial 60 MG IV ×2 (00:02→06:04)
[2017-10-07 02:20] VITALS: BP 123/59; PULSE 60; RESP 16; TEMP 37.2; O2SAT 95
[2017-10-07 04:27] VITALS: PULSE 62
[2017-10-07] MEDS: ACYCLOVIR IV (06:04)
[2017-10-07] MEDS: DEXTROSE 5% IV (06:04)
[2017-10-07 06:42] LABS: Anion Gap 8 (5-15); BUN 14 mg/dL (7-18); BUN/Creat Ratio 14.3 RATIO (10-20); Calcium,Total 7.7 mg/dL (8.5-10.1); Chloride 109 mmol/L (98-107); Creatinine, Serum 0.98 mg/dL (0.70-1.30); EST Glomerular Filtration Rate 87 mL/min (>60); Est Glom Filt Rate - Afr Amer 105 mL/min (>60); Estimated Creatinine Clearance 108.34 ml/min; Glucose 145 mg/dL (70-110); Potassium 3.8 mmol/L (3.5-5.1); Sodium Level 142 mmol/L (136-145)
[2017-10-07 07:24] VITALS: BP 126/54; PULSE 75; RESP 16; TEMP 37.8; O2SAT 96
[2017-10-07 07:28] VITALS: PULSE 65
[2017-10-07] MEDS: Hydrocortisone 2.5% Crm 1 APPLIC TOPICAL (10:36)
[2017-10-07] MEDS: Enoxaparin 40 MG/0.4 ML Syringe SC (10:36)
--- NOTE | 2017-10-07 11:04 | PCM.PN.HOSP ---
Subjective: Patient seen and examined. No complains. Tolerated his breakfast. Denies any fever, chills, chest pain. Objective: PHYSICAL EXAM: General: Alert, Oriented x3, Cooperative, not pale, not jaundiced HEENT: Atraumatic, PERRLA, EOMI, Normocephalic Neck: Supple, No JVD Lungs: Clear to auscultation, Normal air movement, No rhonchi, No wheeze, No rales Cardiovascular: Regular rate, Regular Rhythm, Normal S1, Normal S2, No murmurs Abdomen: Bowel Sounds Present, Soft, Non Tender, Non-Distended Extremities: No edema, Capillary Refill Less than 3 Seconds Skin: Rash Present - Erythematous target lesions were more coalesced and welt and pruritic. Musculoskeletal: No Tenderness to Palpation of Joints or Extremities Neurological: Cranial nerves II-XII grossly intact Psych/Mental Status: Normal Affect, Appropriate Vitals/I&O's: Vital Signs Temp Pulse Resp BP Pulse Ox 100.0 F H 65 16 126/54 H 96 10/07/17 07:24 10/07/17 07:28 10/07/17 07:24 10/07/17 07:24 10/07/17 07:24 Oxygen Delivery Method Room Air Weight: 122.47 kg Body Mass Index (BMI) 34.7 Intake and Output for Last 24 Hours 10/05/17 10/06/17 10/07/17 23:59 23:59 23:59 Intake Total 727 / 727 4356 / 4356 2388 / 2388 Output Total 1750 / 1750 1700 / 1700 Balance 727 / 727 2606 / 2606 688 / 688 Laboratory Results 10/07/17 05:25: Sodium 142, Potassium 3.8, Chloride 109 H, Carbon Dioxide 25.0, Anion Gap 8, BUN 14, Creatinine 0.98, Estim Creat Clear Calc 108.34, Est GFR (MDRD) Af Amer 105, Est GFR (MDRD) Non-Af 87, BUN/Creatinine Ratio 14.3, Glucose 145 H, Calcium 7.7 L Current Medications Enoxaparin Sodium (Lovenox) 40 mg SC DAILY@1000 [facility] Last Admin: 10/07/17 10:36 Dose: 40 mg Hydralazine HCl (Apresoline) 5 mg IV Q6H PRN PRN PRN Reason: hypertension Hydrocortisone (Hytone) 1 applic TOPICAL BID [facility] PRN Reason: Protocol Last Admin: 10/07/17 10:36 Dose: 1 applicatio Hydroxyzine Pamoate (Vistaril) 25 mg PO Q6 [facility] Last Admin: 10/07/17 06:04 Dose: 25 mg Pantoprazole Sodium 40 mg/ N/A 10 mls @ 300 mls/hr IV Q12 [facility] Last Admin: 10/07/17 10:37 Dose: 300 mls/hr Acyclovir Sodium 820 mg/ (Dextrose) 266.4 mls @ 266.4 mls/hr IV Q8 [facility] Stop: 10/08/17 06:59 Last Admin: 10/07/17 06:04 Dose: 266.4 mls/hr Sodium Chloride () 500 mls @ 125 mls/hr IV .Q4H [facility] Last Admin: 10/07/17 10:35 Dose: 125 mls/hr Magnesium Hydroxide (Milk Of Magnesia) 30 ml PO DAILY PRN PRN PRN Reason: Constipation Methylprednisolone (Solu-Medrol) 60 mg IV Q6 [facility] Stop: 10/08/17 12:01 Last Admin: 10/07/17 06:04 Dose: 60 mg Ondansetron HCl (Zofran) 4 mg IV Q6H PRN PRN PRN Reason: NAUSEA/VOMITING Last Admin: 10/07/17 00:01 Dose: 4 mg Sodium Chloride () 5 - 30 ml IV UD PRN PRN Reason: SALINE FLUSH Last Admin: 10/07/17 06:04 Dose: 10 ml Tramadol HCl (Ultram (G)) 50 mg PO Q8H PRN PRN PRN Reason: PAIN Last Admin: 10/06/17 17:23 Dose: 50 mg Trazodone HCl (Desyrel) 100 mg PO QHS [facility] Last Admin: 10/06/17 21:34 Dose: 100 mg Assessment/Plan 47-year-old male who was admitted 5 day history of epigastric and retrosternal chest pain and 6 day history of a rash over his lower abdomen and upper thighs after falling in mud 6 days ago. 1. Epigastric/retrosternal chest pain due to diffuse gastritis, s/p EGD, on PPI BID. 2. Erythematous rash/ erythema multiform, on steroid hydrocortisone 2.5% topical cream, vistaril prn. 3. Hypokalemia, replaced, recheck in am. 4. Osteoarthritis of the hip, on tramadol. 5. DVT prophylaxis on heparin 5000 subcu areas twice daily.
[2017-10-07 12:26] VITALS: BP 136/77; PULSE 66; RESP 16; TEMP 36.9; O2SAT 98
--- NOTE | 2017-10-27 07:32 | PCM.DC.SUM ---
Discharge Date and Diagnosis Date of Admission: 10/05/17 Date of Discharge: 10/07/17 - Primary Discharge Diagnosis Rash Epigastric pain - Secondary Discharge Diagnosis Chronic Problems (Last Updated 10/02/17 @ 13:05 by Meagan Yu) Osteoarth NOS-unspec (Chronic) TIA (transient ischemic attack) (Chronic) ETOH abuse (Chronic) History of tobacco use (Chronic) Hospital Course and Treatment None Operations: None Procedures: None Summary of Care Provided: 47-year-old male who was admitted 5 day history of epigastric and retrosternal chest pain and 6 day history of a rash over his lower abdomen and upper thighs after falling in mud 6 days ago. 1. Epigastric/retrosternal chest pain due to diffuse gastritis, s/p EGD, managed on PPI BID. 2. Erythematous rash/ erythema multiform, on steroid hydrocortisone 2.5% topical cream, vistaril prn with improvement 3. Hypokalemia, replaced 4. Osteoarthritis of the hip, on tramadol. Discharge Diet: No Restrictions Discharge Activity: May not drive while taking narcotic pain medications. Home Medications: Medications to take at Discharge Aspirin [Aspirin, Baby] 81 mg PO DAILY@0800 #30 tab.chew 03/01/15 Trazodone HCl [Desyrel] 100 mg PO QHS 10/03/17 TraMADol [Ultram] 50 mg PO Q8H PRN PRN 10/05/17 HydrOXYzine ANAND [Vistaril] 25 mg PO Q6 PRN #20 capsule 10/06/17 Hydrocortisone 2.5% Crm [Hytone] 1 applic TOPICAL BID #2 tube 10/06/17 Pantoprazole Sodium [Protonix] 40 mg PO DAILY #30 tab 10/06/17 Cetirizine HCl [Zyrtec] 10 mg PO DAILY #14 tab.rapdis 10/08/17 Famotidine [Pepcid] 20 mg PO BID #28 tablet 10/08/17 Following Prescrptions Were Given to Patient: Pantoprazole Sodium [Protonix] 40 mg PO DAILY #30 tab Hydrocortisone 2.5% Crm [Hytone] 1 applic TOPICAL BID #2 tube Primary Care Physician: Geovanna Disla NP-C [Primary Care Provider] - Please follow up with your Primary Care Physician in: in 2 weeks Please Follow Up With: Jacob Shine MD When: in 3-4 weeks Disposition: Home Minutes spent on discharge:: 25 Patient Condition:: Stable Meaningful Use Info Meaningful Use Diagnoses (Choose all that apply): None applicable Code Visit Inpatient E&M: 81115 Disch Hosp
== END 2017-10-07 12:25 | disposition home or self-care (01) | DRG 183 ==
LOC: ED 09:13 → MS2 14:21
PROVIDERS: Surgery; Admitting Provider Student in an Organized Health Care Education/Training Program; Emergency Provider Emergency Medicine; Family Provider Nurse Practitioner Primary Care; PCP Nurse Practitioner Primary Care; Visit Provider Internal Medicine
PROC: 0DJ08ZZ Inspection of Upper Intestinal Tract, Via Natural or Artificial Opening Endoscopic (ICD-10-PCS; CPT 43235; principal; 2017-10-06 11:00)
DX: K29.00 Acute gastritis without bleeding (principal); E87.6 Hypokalemia; F17.210 Nicotine dependence, cigarettes, uncomplicated; K44.9 Diaphragmatic hernia without obstruction or gangrene; M16.10 Unilateral primary osteoarthritis, unspecified hip; L51.9 Erythema multiforme, unspecified; R21 Rash and other nonspecific skin eruption; Z86.73 Personal history of transient ischemic attack (TIA), and cerebral infarction without residual deficits; F10.10 Alcohol abuse, uncomplicated; Z79.899 Other long term (current) drug therapy
CPT/HCPCS: 43239; 36415; 80048; 80053; 83690; 84484; 85025; 88305; 88342; 93005; 99218; 99283; J7030; J7040; A4216; G0378; J2405; J3490

== ENCOUNTER → 2017-12-31 10:39 | Outpatient (CLI) | payer MEDICAID, SELFPAY ==
--- NOTE | 2017-12-31 10:42 | RAD_ITS ---
XR Hip Unilateral with Pelvis when performed; 2-3 Views INDICATION: bilateral hip pain COMPARISON: CT October 03, 2017 TECHNIQUE: Frontal view of the pelvis and 2 views of the left hip FINDINGS: The pelvis is intact. Severe degenerative changes are noted at the bilateral hips with effacement of the joint space, large osteophytes and acetabular sclerosis. There is no evidence of acute fracture. RAD/Hip 2-3 Views with Pelvis IMPRESSION: Severe degenerative changes at the bilateral hips considering patient's age. No evidence of acute fracture. at 1959 Reported and signed by: Janel Burgos MD Electronically Signed: Janel Burgos MD at 18:58 EST Tel , Service support ,
--- NOTE | 2017-12-31 10:59 | RAD_ITS ---
XR Hip Unilateral with Pelvis when performed; 2-3 Views INDICATION: bilateral hip pain COMPARISON: Pelvis from earlier the same day TECHNIQUE: 2 views of the right hip FINDINGS: A rounded radiopaque marker obscures the superior lateral aspect of the hip on both views. The joint space is decreased. Marginal osteophytes are noted. Sclerosis is present at the acetabulum. RAD/Hip 2-3 Views with Pelvis IMPRESSION: Rounded radiopaque marker obscures superolateral aspect of the hip. Severe degenerative changes are noted, no evidence of acute fracture or dislocation. at 2045 Reported and signed by: Janel Burgos MD Electronically Signed: Janel Burgos MD at 19:43 EST Tel , Service support ,
== END ==
PROVIDERS: Family Provider Nurse Practitioner Primary Care; PCP Nurse Practitioner Primary Care; Visit Provider Orthopaedic Surgery
DX: M25.551 Pain in right hip (principal); M25.552 Pain in left hip
CPT/HCPCS: 73502

== ENCOUNTER 2018-01-20 05:39 | Inpatient (IN) | payer MEDICAID, SELFPAY ==
[2018-01-13 10:03] VITALS: BP 127/79; PULSE 68; RESP 17; TEMP 36.9; O2SAT 97; BMI 35.2
[2018-01-13 10:45] LABS: Hematocrit 44.9 % (40-54); Hemoglobin 15.7 g/dl (13.0-16.5); Mean Corpuscular Hgb 33.8 pg (27.0-32.0); Mean Corpuscular Volume 96.8 fL (80-94); Mean Platelet Vol. 10.3 fl (6.2-12.0); Platelet Count 241 K/mm3 (150-450); RBC Distribution Width CV 12.6 % (11.6-14.6); RBC Distribution Width SD 44.3 fl (35.1-43.9); Red Blood Count 4.64 M/mm3 (4.6-6.2); White Blood Count 8.6 K/mm3 (4.4-11.0)
[2018-01-13 10:46] LABS: Scan Indicated on CBC? Y/N NO
[2018-01-13 11:34] LABS: Anion Gap 8 (5-15); BUN 10 mg/dL (7-18); BUN/Creat Ratio 11.9 RATIO (10-20); Calcium,Total 8.5 mg/dL (8.5-10.1); Chloride 106 mmol/L (98-107); Creatinine, Serum 0.84 mg/dL (0.70-1.30); EST Glomerular Filtration Rate 104 mL/min (>60); Est Glom Filt Rate - Afr Amer 126 mL/min (>60); Glucose 107 mg/dL (74-106); Potassium 3.9 mmol/L (3.5-5.1); Sodium Level 139 mmol/L (136-145)
[2018-01-20] VITALS (12 sets, daily range): BP systolic 108–150; BP diastolic 52–98; PULSE 56–73; RESP 16–18; TEMP 35.8–37.5; O2SAT 94–99; BMI 35.2
[2018-01-20] MEDS: Celecoxib 200 MG Capsule PO (06:18)
[2018-01-20] MEDS: oxyCODONE HCl Cr 10 MG Tablet PO ×2 (06:18→21:32)
--- NOTE | 2018-01-20 07:15 | HIP_PTH ---
PATIENT: JOSE ALBERTO SAINZ LOC: MS3 U#:[id number] AGE/SX: 47/M [place] [facility] [place]: Adin Quesada DO : 1970 BED: 1 DIS: 01/22/2018 SPEC #: [id number] RECD: 01/20/18 10:09 STATUS: DIO AZEB #: [id number] JOSH: 01/20/18 07:[address]: Adin Quesada DEPT: SURGICAL PATHOLOGY RECD BY: Chetan Patel ENTERED: 01/20/18 10:57 SP TYPE: TOTAL HIP OTHR DR: Geovanna Disla, PHYSICAL EDUCATION AIDE-Demar Tissues: Hip, NOS Procedures: Decalcification bone/plaque Surgery Specimen Level IV HEADER OPERATION: Right total hip replacement PRE-OP DIAGNOSIS: Osteoarthritis right hip TISSUE SUBMITTED: Right hip bone/tissue MICROSCOPIC DIAGNOSIS Right hip bone and tissue, total hip replacement: Femoral head with degenerative osteoarthritic changes. SJ:chandu 01/27/18 MICROSCOPIC DESCRIPTION Slides are reviewed. GROSS DESCRIPTION Received is one container labeled with the patient's name and designated right hip bone and tissue. The specimen consists of a yousif femoral head measuring 5 x 5 x 4.5 cm. The articular surface displays prominent osteophyte formation, eburnation and bone erosion. Also present in the specimen container are multiple irregular fragments of bone and bone reamings measuring in aggregate 5 x 3 x 2 cm. Non Emergency Services Ambulance Driver sections are submitted in two cassettes as follows: 1 ? bone reamings, 2 ? femoral head after decalcification. / BRIE:chandu 01/20/18 More sections are submitted as follows: 3 ? femoral head after decalcification. / SJ:chandu 01/27/18 TC:5 CPT: 25523, 77065
[2018-01-20] MEDS: Clindamycin 900 MG/50 ML BAG 75 MG IV (08:00)
--- NOTE | 2018-01-20 08:15 | CASEMGMT ---
Social Work Note Reviewed case with Mia, admission coordinator for [facility], and informed that pt was hoping to go to [facility] at discharge according to his pre-op phone call. Mia confirms that they would have a bed and will submit request for pre-cert once therapy documented. Will update pt and continue to follow and assist with discharge plan. Plan: for continued rehabilitation. Geovanna Souza, TROLLEY COLLECTOR, MANAGER OF DIGITAL
--- NOTE | 2018-01-20 10:04 | PCM.IMDPSTOP ---
Immediate Post-Op Note Date of Procedure: 01/20/18 Primary Surgeon/Physician: Adin Quesada DO cook frozen dessert: Rona Bolanos Pre-Operative Diagnosis: Bilateral osteoarthritis of the hip. Post-Operative Diagnosis: Same as above Surgery/Procedure Performed:: Right total hip arthroplasty-Jas Accolade Description of Surgical Findings:: See dictation Estimated Blood Loss: 200 Specimen's removed: Bone cuts Drains: None Type of Anesthesia:: General ASA Class: ASA1 Normal Healthy Patient - Admit VTE Documentation VTE Present on Admission: No VTE Mechan Device Prophylaxis: SCD's, Knee High LAURI Hose VTE Pharm Prophylaxis ordered?: Yes
--- NOTE | 2018-01-20 10:07 | OP.PCM_ITS ---
Report of Operation Date of Procedure: 01/20/18 Pre-Operative Diagnosis: Bilateral osteoarthritis of the hip. Post-Operative Diagnosis: Same as above Surgery/Procedure Performed:: Right total hip arthroplasty-Jas Accolade Description of Surgical Findings:: 47-year-old male with significant bilateral osteoarthritis of the hips. Having failed conservative measures patient elected for right total hip arthroplasty. Patient was met in the holding area where the right lower extremity was marked and identified by the orthopedic surgeon. Patient was taken the operating room in satisfactory condition with somewhat to place to identify patient operative procedure and limb. Patient received 900 clindamycin due to penicillin allergy. Patient also received 1 g of TXA. Patient underwent assessed successful intubation. He was then placed into the left lateral decubitus position with well-padded axillary roll using the hip all source intelligence system. Patient was then prepped and draped in usual fashion. Right lower extremity was marked and identified. Patient steps he had about a 15 cm incision made proximal to the greater trochanter moving distally in a mildly curvilinear fashion. The IT band was identified and split longitudinally as was the tensor. At that point time the gluteus minimus and medius were protected and a subsequent capsulotomy and short external rotator takedown was undertaken using standard technique. The patient had a coxa breva and a very contracted hip. We subsequent were able to dislocate the hip standard technique. At that point time a primary neck cut was undertaken of roughly 15-17 mm proximal to lesser trochanter. Subsequently placed our standard retractors translated the head anterior inferior in order to gain access to the acetabulum. Any remnant labral tissue was resected using standard technique. Transverse ligament was maintained. Ligamentum teres was resected through the cotyloid. We subsequently began our medialization reaming using standard technique final reaming took us to a size [address] a 60 mm titanium nic spherical shell using the [place] Accolade system. We had good purchase by elected to place 1 6.5 millimeter screw using standard AO technique. At that point time we then impacted and MDM liner with an inner diameter 46 mm using standard technique. Appropriate version and inclination were established upon impaction. We then turned our attention to stem preparation. log cutter was introduced any excess osteophytes and neck were resected manually. Canal finder then introduced. Standard broaching was then undertaken lateralizing as much as possible maintaining good anteversion on the stem in an anatomic fashion. We initially sized up to a size 5 stem however the patient was relatively tight when trying to reduce and using the -4 offset head. At that point time I made a secondary neck cut re-broached was able to impact the size 5 stem deeper and were able to then retrial. The patient still maintained leg length issues at 0 and was very tight we elected to go down to a 2.75 mm offset. This provided what we felt was adequate leg length and stability We used 127 neck angle during the trialing process. The hip showed excellent stability with flexion and internal rotation of roughly 60-70? before any form of subluxation could be appreciated. Patient had appropriate extension of the hip. We had a negative shuck test. No anterior impingement could be appreciated by placing the finger. At that point time the hip was gently reduced trial components were removed and the wound was copiously irrigated multiple times during the procedure. We then impacted a #5 Accolade 2 127? neck angle stem again from [place]. This was done using standard technique. We used a MDM sabianist insert with a 46 outer diameter 28 inner with subsequent contained a Biolox ceramic 28 mm femoral head -2.7 offset. The hip was reduced stability rechecked overall alignment was maintained and stability preserved. We then copiously irrigated the wound placed 3 drill holes to the greater trochanter repair the remnant portions of the short external rotators and capsule. This was done in neutral mechanical alignment. No excess bleeding could be appreciated. Copious irrigated one additional time after removing the retractors and then reapproximated the IT band and tensor fascia using #1 Vicryl in [id number] technique. The fat layer reapproximated again with a few simple 0 Vicryls the soft tissue was reapproximated with 2-0 Vicryl running subicular Monocryl and Dermabond. Patient was then dressed with a Silverlon dressing equivalent. Abduction pillow placed after successful extubation. Patient be admitted to the floor for 24 hours of IV antibiotics appropriate IV and p.o. pain medication and DVT prophylaxis to include 325 p.o. twice daily of aspirin with GI prophylaxis. Posterior hip precautions ?6 weeks. Implants included [place] Accolade 2 #5 stem 127, size 60 cluster hole cup with MDM liner, 46mm sabianist insert with a 28 millimeter ceramic Biolox head -2.7 offset. Drains or complications. I was scrubbed we will time during our procedure. Any major issues please contact me. granite sandblaster apprentice: Rona Bolanos Type of Anesthesia:: General Specimen's removed: Bone cuts Drains: None Estimated Blood Loss (mL): 200 Grafts/Implants Used: Jas Accolade - Complications None - Admit VTE Documentation VTE Present on Admission: No VTE Mechan Device Prophylaxis: SCD's, Knee High LAURI Hose VTE Pharm Prophylaxis ordered?: Yes
--- NOTE | 2018-01-20 10:55 | RAD_ITS ---
STUDY: X-RAY - PELVIS AND RIGHT HIP REASON FOR EXAM: Male, 47 years old. Post operative assessment TECHNIQUE: Two views of the pelvis and hip were obtained. COMPARISON: December 31, 2017 FINDINGS: The bowel gas pattern is unremarkable. There is minimal air in the soft tissues around the right hip. The visualized iliac wings, sacroiliac joints and sacrum are unremarkable. No abnormalities are seen in the visualized superior and inferior pubic rami. Normal appearing pubic symphysis. The visualized ischial tuberosities are unremarkable. There are severe degenerative changes in the left hip. There is a prosthesis in the proximal right femur. There is a prosthesis in the right acetabulum. There is adequate alignment of the prostheses. RAD/Hip Min 2 Views (Portable) IMPRESSION: Surgical changes are present in the right hip after arthroplasty. Electronically Signed: Sondra Guillen MD at 11:38 EDT Tel Direct: [phone], Service support ,
[2018-01-20] MEDS: traMADol 50 MG Tablet PO (12:30)
[2018-01-20] MEDS: Senna/Docusate Sodium 1 Tablet 2 TABLET PO ×2 (12:30→21:33)
[2018-01-20] MEDS: Famotidine 20 MG Tablet PO (12:30)
[2018-01-20] MEDS: Loratadine 10 MG Tablet PO (12:31)
[2018-01-20] MEDS: Acetaminophen 500 MG Tablet 1000 MG PO ×2 (13:27→21:32)
[2018-01-20] MEDS: Morphine 4 MG/ML Syringe IV (13:28)
[2018-01-20] MEDS: Clindamycin 600 MG/50 ML BAG 100 MG IV ×2 (13:28→21:45)
--- NOTE | 2018-01-20 15:32 | CASEMGMT ---
Social Work Note Met with pt to discuss discharge planning. SW introduced self and role at [facility]. SW informed pt that he is on the waitlist for Inpatient Rehab and that this worker is waiting to get pre-cert back. SW informed pt that his insurance dictates whether or not they will approve him going to the Inpatient Rehab. Pt states understanding. SW encouraged pt to be thinking of other facilities he may want to try if insurance denies inpatient rehab. Pt states understanding. motion picture set worker will continue to follow. Pt denied additional needs at this time. Plan: Inpatient rehab pending pre-cert. Ariana Villasenor NATIONAL SALES REPRESENTATIVE, GUEST SERVICES ASSOCIATE
[2018-01-20] MEDS: oxyCODONE 5 MG Tablet 10 MG PO (18:27)
[2018-01-20] MEDS: Lactated Ringers 1,000 ML 75 ML IV (18:29)
[2018-01-20] MEDS: Aspirin 325 MG Tablet PO (21:33)
[2018-01-21] MEDS: Clindamycin 600 MG/50 ML BAG 100 MG IV (02:00)
[2018-01-21] MEDS: oxyCODONE 5 MG Tablet 10 MG PO ×5 (02:01→18:30)
[2018-01-21 02:04] VITALS: BP 123/68; PULSE 78; RESP 16; TEMP 37.3; O2SAT 95
[2018-01-21] MEDS: Acetaminophen 500 MG Tablet 1000 MG PO ×3 (05:51→21:40)
[2018-01-21 05:57] LABS: Hemoglobin 12.5 g/dl (13.0-16.5); Mean Corp Hgb Conc 34.7 g/gl (32-36); Mean Corpuscular Hgb 33.8 pg (27.0-32.0); Mean Corpuscular Volume 97.3 fL (80-94); Mean Platelet Vol. 10.8 fl (6.2-12.0); Platelet Count 201 K/mm3 (150-450); RBC Distribution Width CV 12.2 % (11.6-14.6); RBC Distribution Width SD 41.5 fl (35.1-43.9); White Blood Count 9.2 K/mm3 (4.4-11.0)
[2018-01-21 06:03] LABS: Scan Indicated on CBC? Y/N NO
[2018-01-21 06:28] LABS: Anion Gap 6 (5-15); BUN 8 mg/dL (7-18); BUN/Creat Ratio 8.8 RATIO (10-20); Calcium,Total 7.2 mg/dL (8.5-10.1); Chloride 106 mmol/L (98-107); Creatinine, Serum 0.91 mg/dL (0.70-1.30); EST Glomerular Filtration Rate 95 mL/min (>60); Est Glom Filt Rate - Afr Amer 115 mL/min (>60); Estimated Creatinine Clearance 116.68 ml/min; Glucose 108 mg/dL (74-106); Potassium 3.9 mmol/L (3.5-5.1); Sodium Level 139 mmol/L (136-145)
--- NOTE | 2018-01-21 07:53 | PCM.PN.ORT ---
Subjective: Postoperative day 1 status post right total hip arthroplasty. No major issues overnight. Pain is otherwise controlled with oral medication. Patient is awaiting PT OT evaluation. Also will await shelter case manager evaluation for possible detention facility placement if qualifies. Otherwise doing well. Currently sitting upright eating breakfast. Denies any fevers chills nausea vomiting chest pain or shortness of breath - Physical Exam General: Alert, Oriented x3, Cooperative, No apparent distress Musculoskeletal: - - Distally neurovascular intact. EHL anterior gastrocsoleus peroneals quads hamstrings 5 out of 5. No expanding hematoma. Dressing intact. No calf pain negative Homans. Teds in place. Lab values reviewed and stable hardware otherwise well placed and seated Vital Signs Temp Pulse Resp BP Pulse Ox 99.2 F H 78 16 123/68 H 95 01/21/18 02:04 01/21/18 02:04 01/21/18 02:04 01/21/18 02:04 01/21/18 02:04 Oxygen Delivery Method Room Air Weight: 274 lb 4.081 oz Body Mass Index (BMI) 35.2 Finger Stick Blood Glucose 76 Intake and Output for Last 24 Hours 01/19/18 01/20/18 01/21/18 23:59 23:59 23:59 Intake Total 3429 / 3429 1469 / 1469 Balance 3429 / 3429 1469 / 1469 Laboratory Tests Past 24 Hrs 01/21/18 01/21/18 05:30 05:30 WBC 9.2 RBC 3.70 L Hgb 12.5 L Hct 36.0 L MCV 97.3 H MCH 33.8 H MCHC 34.7 RDW 12.2 RDW Differential 41.5 Plt Count 201 MPV 10.8 Sodium 139 Potassium 3.9 Chloride 106 Carbon Dioxide 27.0 Anion Gap 6 BUN 8 Creatinine 0.91 Estim Creat Clear Calc 116.68 Est GFR (MDRD) Af Amer 115 Est GFR (MDRD) Non-Af 95 BUN/Creatinine Ratio 8.8 L Glucose 108 H Calcium 7.2 L Medical Necessity - Tobacco Use Smoking Status: Current every day smoker Assessment/Plan Assessment: After orthopedics status post right total hip arthroplasty doing well. Plan: At this point time mobilize patient with appropriate posterior hip precautions. Evaluate patient for possible detention facility if qualifies. Otherwise anticipate discharge home tomorrow. Any issues please contact me.
[2018-01-21 09:57] VITALS: BP 129/74; PULSE 74; RESP 16; TEMP 37.6; O2SAT 93
[2018-01-21] MEDS: Senna/Docusate Sodium 1 Tablet 2 TABLET PO ×2 (10:10→21:41)
[2018-01-21] MEDS: oxyCODONE HCl Cr 10 MG Tablet PO ×2 (10:10→21:41)
[2018-01-21] MEDS: Loratadine 10 MG Tablet PO (10:10)
[2018-01-21] MEDS: Aspirin 325 MG Tablet PO ×2 (10:10→17:19)
[2018-01-21] MEDS: Famotidine 20 MG Tablet PO (10:11)
--- NOTE | 2018-01-21 10:19 | CASEMGMT ---
Social Work Note RONI met with pt to discuss discharge planning. SW asked pt how he felt he did with therapy and pt states that he did well. SW informed pt that physical therapy is recommending pt be discharged home with outpatient therapy and that this worker is unsure if his insurance will approve inpatient rehab as he is doing well with therapy. Pt was receptive to this. He states that he would be interested in going home and receiving outpatient therapy. SW asked pt if he would like this medical social worker to cancel referral to inpatient rehab and pt states yes. SW asked pt where he would like to receive his outpatient therapy at and pt states [facility]. RONI informed LELO Blount that pt is interested in outpatient therapy. LELO Blount will follow up with outpatient therapy referral. RONI placed call to Kisha, inpatient rehab, to inform her that patient will be discharged home with outpatient therapy. Kisha states that she will cancel the referral to insurance. Plan: Discharge home with outpatient therapy Ariana Villasenor SUPERVISOR REINFORCED STEEL PLACING, PHARMACY INTAKE TECHNICIAN
--- NOTE | 2018-01-21 10:32 | CASEMGMT ---
LELO SOUTH received update for Joe TAMAYO regarding patient requesting outpatient therapy at [facility]. LELO SOUTH discussed discharge plan with patient and he would like [facility] and will have transportation available. Patient states he has all his DME needs met at this time. LELO SOUTH called Dr. Quesada's office and requested script for outpatient therapy be faxed to [facility]. LELO SOUTH will continue to follow this patient and plan for a safe discharge.
[2018-01-21 15:41] VITALS: BP 135/65; PULSE 75; RESP 16; TEMP 36.9; O2SAT 92
[2018-01-21 19:47] VITALS: BP 129/74; PULSE 80; RESP 18; TEMP 37; O2SAT 97
[2018-01-22 02:38] VITALS: BP 138/73; PULSE 71; RESP 18; TEMP 37.2; O2SAT 97
[2018-01-22] MEDS: oxyCODONE 5 MG Tablet 10 MG PO ×2 (02:41→06:38)
[2018-01-22 06:02] LABS: Hematocrit 33.4 % (40-54); Hemoglobin 11.6 g/dl (13.0-16.5); Mean Corp Hgb Conc 34.7 g/gl (32-36); Mean Corpuscular Volume 97.9 fL (80-94); Mean Platelet Vol. 11.1 fl (6.2-12.0); Platelet Count 181 K/mm3 (150-450); RBC Distribution Width SD 41.4 fl (35.1-43.9); Red Blood Count 3.41 M/mm3 (4.6-6.2); White Blood Count 9.5 K/mm3 (4.4-11.0)
[2018-01-22 06:08] LABS: Scan Indicated on CBC? Y/N NO
[2018-01-22] MEDS: Acetaminophen 500 MG Tablet 1000 MG PO (06:38)
--- NOTE | 2018-01-22 08:14 | PCM.DC.THR ---
Discharge Activity: Return to Normal Activity, May not drive while taking narcotic pain medications., May Shower, Use Walker, - - Posterior hip precautions ?6 weeks. Sleep with abduction pillow between legs. Do not cross legs. May shower in (days): 1 May resume sexual activity in: 8 weeks Ice area for (Minutes): 20 Weight Bearing Status: Weight bearing as tolerated Call your doctor if your incision/area has: Continuous Slow Oozing, Sudden Increased Bleeding, Increased Pain/ Swelling, Increased Redness, Foul Smelling Discharge, Swelling at the incision site Call your doctor if you observe: Fever of 101 or Higher, Coldness, Increased Pain, Numbness or Tingling, Change in Color, Inability to urinate, Inability to have a bowel movement, Using more than one pad per hour, Shortness of breath, Dizziness, Fainting spells, Swelling in the ankles, Chest pain, Prolonged hiccoughing, Increased palpitations (irregular heartbeat), Calf discomfort, Uncontrolled pain Suture Line Care: Avoid Pulling/Pushing, Avoid Pinching/Bending Change Dressing in (Days):: 5 Remove Dressing in (days):: 5 Cleanse incision/area with: Soap & Water Additional Dressing/Incision Instructions:: May shower over top of wound at this time. Dressing stays on for a total of 7 days from date of operation. Do not submerge wound. Wash hands prior to touching wound. Allergies/Adverse Reactions: Allergies Penicillins Allergy (Severe, Verified 01/13/18 10:00) Anaphylaxis Medications to take at Discharge loratadine 10 mg tablet 10 mg PO QDAY 12/31/17 meloxicam 15 mg tablet 15 mg PO QDAY 12/31/17 Famotidine [Pepcid] 20 mg PO BID 01/13/18 Hydrocodone/Acetaminophen [Hydrocodon-Acetaminophen 5-325] 1 tab PO BID PRN 01/13/18 Aspirin E.C. [Ecotrin] 325 mg PO BID #30 tab 01/22/18 Docusate Sodium [Colace] 100 mg PO BID PRN PRN #10 cap 01/22/18 Famotidine [Pepcid] 40 mg PO DAILY #60 tab 01/22/18 Oxycodone HCl/Acetaminophen [Percocet 5/325] 1 - 2 tablet PO Q4H PRN PRN #60 tablet 01/22/18 proMETHazine tablet [Phenergan] 25 mg PO Q4H PRN PRN #10 tab 01/22/18 The following prescriptions were given: Oxycodone HCl/Acetaminophen [Percocet 5/325] 1 - 2 tablet PO Q4H PRN PRN #60 tablet PRN Reason: Pain proMETHazine tablet [Phenergan] 25 mg PO Q4H PRN PRN #10 tab PRN Reason: Nausea Docusate Sodium [Colace] 100 mg PO BID PRN PRN #10 cap PRN Reason: Constipation Famotidine [Pepcid] 40 mg PO DAILY #60 tab Aspirin E.C. [Ecotrin] 325 mg PO BID #30 tab Primary Care Physician: Geovanna Disla NP-C [Primary Care Provider] - Please Follow Up With: Adin Quesada DO When: call [facility] for appt for 2 weeks Proposed Discharge Date: 01/22/18
[2018-01-22 09:25] VITALS: BP 140/66; PULSE 79; RESP 16; TEMP 37; O2SAT 94
[2018-01-22] MEDS: Senna/Docusate Sodium 1 Tablet 2 TABLET PO (09:33)
[2018-01-22] MEDS: Aspirin 325 MG Tablet PO (09:33)
[2018-01-22] MEDS: Loratadine 10 MG Tablet PO (09:33)
[2018-01-22] MEDS: Famotidine 20 MG Tablet PO (09:33)
[2018-01-22] MEDS: oxyCODONE HCl Cr 10 MG Tablet PO (09:33)
--- NOTE | 2018-01-22 10:53 | PCM.PN.ORT ---
Subjective: Postop day 2 status post right total hip arthroplasty doing well. No major issues overnight. Pain is controlled with p.o. pain medication. Patient at this time feels that he can be discharged home start outpatient physical therapy. No fevers chills nausea vomiting chest pain or shortness of breath noted. - Physical Exam General: Alert, Oriented x3, Cooperative, No apparent distress Musculoskeletal: - - Distally neurovascularly intact. No calf pain negative Homans. SCDs in place. Incision clean dry and intact. No expanding hematoma. Lab values rate reviewed and stable. Vital Signs Temp Pulse Resp BP Pulse Ox 98.6 F 79 16 140/66 H 94 01/22/18 09:25 01/22/18 09:25 01/22/18 09:25 01/22/18 09:25 01/22/18 09:25 Oxygen Delivery Method Room Air Weight: 274 lb 4.081 oz Body Mass Index (BMI) 35.2 Finger Stick Blood Glucose 76 Intake and Output for Last 24 Hours 01/20/18 01/21/18 01/22/18 23:59 23:59 23:59 Intake Total 3429 / 3429 1469 / 1469 Balance 3429 / 3429 1469 / 1469 Laboratory Tests Past 24 Hrs 01/22/18 05:06 WBC 9.5 RBC 3.41 L Hgb 11.6 L Hct 33.4 L MCV 97.9 H MCH 34.0 H MCHC 34.7 RDW 12.0 RDW Differential 41.4 Plt Count 181 MPV 11.1 Medical Necessity - Tobacco Use Smoking Status: Current every day smoker Assessment/Plan Assessment: Postop day 2 status post right total hip arthroplasty. Doing well. Plan: At this point time patient be discharged home to outpatient physical therapy. Patient will continue with DVT prophylaxis to include aggressive range of motion and mobilization LAURI hose in 325 p.o. twice daily of aspirin with GI prophylaxis. Patient will follow-up in 2 weeks. Continue posterior precautions ?6 weeks. Any major issues please contact me.
--- NOTE | 2018-01-22 10:55 | PCM.DC.BLA ---
Discharge Summary Date of Admission: 01/20/18 Date of Discharge: 01/22/18 Summary: 47-year-old male status post right total hip arthroplasty for bilateral hip osteoarthritis. Patient was admitted to floor for 24 hours of IV antibiotics appropriate IV and p.o. pain medication. DVT prophylaxis included SCDs teds and 325 p.o. twice daily of aspirin with GI prophylaxis. Patient tolerated regular diet. Patient was amatory physical therapy. He was evaluated for shelter facility versus outpatient PT and appropriate for outpatient PT at this time. Patient has the appropriate discharge equipment at home already. No other reported fevers chills nausea vomiting chest pain or shortness of breath. Assessment: Bilateral osteoarthritis of the hip status post right total hip arthroplasty doing well. Plan: This point time patient be discharged home start outpatient physical therapy. Patient will continue with aspirin for the next 21 days twice daily using GI prophylaxis. If he becomes symptomatic he can transition down to 325 daily versus 81 mg p.o. twice daily but continue with GI prophylaxis. Continue with LAURI hose as long as he is mobilization is limited. Patient will continue with posterior hip precautions ?6 weeks. Physical therapy prescription has been sent to [facility] for outpatient PT. Any major issues please contact me.
== END 2018-01-22 12:55 | disposition home or self-care (01) | DRG 209 ==
PROVIDERS: Anesthesiology; Admitting Provider Orthopaedic Surgery; Family Provider Nurse Practitioner Primary Care; PCP Nurse Practitioner Primary Care; Visit Provider Orthopaedic Surgery
PROC: 0SR90JZ Replacement of Right Hip Joint with Synthetic Substitute, Open Approach (ICD-10-PCS; CPT 27130; principal; 2018-01-20 06:50)
DX: M16.0 Bilateral primary osteoarthritis of hip (principal); F17.210 Nicotine dependence, cigarettes, uncomplicated; Z86.73 Personal history of transient ischemic attack (TIA), and cerebral infarction without residual deficits
CPT/HCPCS: 36415; 73502; 80048; 85027; 87077; 87081; 88305; 88311; 97110; 97116; 97162; 97165; 97530; 97535; J7120; J2405

== ENCOUNTER 2018-01-24 18:05 | Emergency (ER) | payer MEDICAID, SELFPAY ==
[2018-01-24 18:06] VITALS: BP 158/85; PULSE 94; RESP 16; TEMP 35.5; O2SAT 97; BMI 34.7
--- NOTE | 2018-01-24 18:37 | ED.VISSUMM ---
- ER Visit Summary Date of Service: 01/24/18 Chief Complaint: Right thigh swelling History of Present Illness: The patient is a 47 M who is postop day 4 from a total hip by Dr. Quesada. Patient states that tonight he was moving around a bit more than normal. He states that he was on the commode and noticed some swelling of the thigh. He states his calf is not swollen in his calf does not hurt. States he spoke with Dr. Quesada who thought there is probably a possible seroma or hematoma that it was not anything to be concerned of. Family wanted him to be evaluated in the ER. Physical Examination: Afebrile vital signs are stable Gen: Well-nourished well-developed Head: Normocephalic atraumatic Eyes: Perrl EOMI ENT: TMs clear no rhinorrhea moist mucous membranes Neck: Supple no lymphadenopathy no JVD nontender CVS: Regular rate rhythm no murmurs normal S1-S2 Respiratory: No distress clear to auscultation bilaterally chest nontender Abdomen: Soft nontender nondistended normal bowel sounds no masses Back: Nontender Extremity: There is a well-healing lateral incision over the left right hip. The right thigh is tender and has swelling but is not edematous. The calf is nontender. There is a minimal amount of swelling there. At the tibial tuberosity the calf measures 41-1/2 on the right 41 on the left. Skin: Normal color no rash Neuro: alert orientated ?3 CN II-XII intact normal strength sensation reflexes gait cerebellar Psych: Normal affect normal mood Emergency Department Course and Treatment: I do not think that this is DVT. I think this is postoperative swelling. Patient will continue his normal postoperative care. Follow-up if not improving return if worsening. Impression: 1. Postoperative swelling This note was generated with [employer] dictation software. 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 His calf is painful or swollen please return to the emergency department or contact your surgeon
== END 2018-01-24 18:59 | disposition home or self-care (01) ==
PROVIDERS: Emergency Provider Emergency Medicine; Family Provider Nurse Practitioner Primary Care; PCP Nurse Practitioner Primary Care
DX: M79.89 Other specified soft tissue disorders (principal); Z96.641 Presence of right artificial hip joint
CPT/HCPCS: 99282

== ENCOUNTER → 2018-02-25 13:15 | Outpatient (CLI) | payer MEDICAID, SELFPAY ==
--- NOTE | 2018-02-25 13:18 | RAD_ITS ---
STUDY: X-RAY - LEFT KNEE REASON FOR EXAM: Pain, no specific injury. TECHNIQUE: 4 view(s) of the knee. COMPARISON: None. FINDINGS: Normal visualized distal femur. Normal visualized proximal tibia and fibula. Normal proximal tibiofibular articulation. Normal medial femorotibial compartment. Normal lateral femorotibial compartment. Normal patellofemoral articulation. The soft tissue structures are unremarkable. RAD/Knee 4 or More Views IMPRESSION: Unremarkable x-ray examination of the left knee. Electronically Signed: Heriberto Tellez MD at 14:04 EDT Tel , Service support ,
== END ==
PROVIDERS: Family Provider Nurse Practitioner Primary Care; PCP Nurse Practitioner Primary Care; Visit Provider Orthopaedic Surgery
DX: M25.562 Pain in left knee (principal); F33.1 Major depressive disorder, recurrent, moderate; F41.9 Anxiety disorder, unspecified; F90.9 Attention-deficit hyperactivity disorder, unspecified type; Z79.899 Other long term (current) drug therapy
CPT/HCPCS: 73564; 97530

== ENCOUNTER 2018-02-27 12:00 | Outpatient (RCR) | payer MEDICAID, SELFPAY ==
--- NOTE | 2018-01-28 13:01 | HP.PTEVAL ---
Patient's Visit Information JOSE ALBERTO SAINZ is a 47 year old M referred to Physical Therapy by Adin Quesada DO DR.[email or web address] with a diagnosis of S/P RIGHT TKR 01/20/[address] QUESADA. Date of Evaluation: 01/28/18 Physical Therapist: Becca Garcia - Visit Plan Frequency: 3x /Week Duration: 6 Weeks Plan: RIGHT THR REHAB PER PROTOCOL TAKING LOW BACK SURGERY INTO CONSDERATION (ONE YEAR POST OP) AND SEVERLY ARTHRITIC LEFT HIP THAT HAS NOT HAD SURGERY YET. - Subjective Subjective: Diagnosis: RIGHT LUCIA 01/20/[address] QUESADA. Work/Leisure: UNEMPLOYEED. LAST WORKED SEP 02 2016. Disability: MY DOCTORS ARE TRYING TO DISABLE ME. Present symptoms: RIGHT HIP AND THIGH. PATIENT DENIES NUMBNESS AND TINGLING. TENDER AROUND THE INCISION. Present since: RIGHT HIP PAIN STARTING ABOUT A YEAR BEFORE SURGERY. Pain Scale: WORST 7/10, LEAST 3/10. Currently: 4/10. IMPROVING. Commenced as a result of: ARTHRITIS. Symptoms at onset: LEFT HIP. Worse: LYING DOWN, WALKING ON IT, TURNING IT THE WRONG WAY, SITTING, GOING TO THE BATHROOM, STANDING, BENDING, TRYING TO LIFT RIGHT LEG. Better: CHANGE OF POSITION, ICE PACKS, MEDICATIONS. Disturbed sleep: YES. Previous history/Previous treatment: [facility] PT IN [place]. NO INJECTIONS. NO PRIOR HIP SURGERIES. PATIENT REPORTS HE HAD BACK SURGERY A YEAR AGO AND AFTER THE SURGERY AT SOME POINT HIS LEFT HIP STARTED TO HURT THEN THE RIGHT ONE. HE CONTINUED TO REHAB HIS BACK UNTIL JULY WHEN HIP X-RAYS WERE DONE THEN HIP SURGERY WAS PURSUED. PLANS TO HAVE LEFT HIP SURGERY SOON POSSIBLE ONCE RIGHT HIP HAS HEALED. Gait: PATIENT REPORTS VERY PAINFUL GAIT PRIOR TO SURGERY. NOW USING FWW WBAT RIGHT LE. WEIGHT BEARING ON RIGHT LE IS LESS PAINFUL NOW COMPARED TO BEFORE SURGERY BUT HIS LLE IS GETTING WORSE AND HE NEEDS LEFT KNEE SURGERY WELL. Accidents: NO. Unexplained weight loss: NO. Imaging: BENNY HIP IMAGING WITH SEVERE ARTHRITIS PER PATIENT REPORT. PMH: 5TH RIB OVER-LAPS THE CHEST PLATE AND HE LOSES BLOOD FLOW TO THE BRAIN AND HEART WITH EXCESSIVE EXSERSION (EX, WORK, STRESS). BACK SURGERY A YEAR AGO FOR HNP - DISCECTOMY IN [place]. TIA FOR NO APPARENT REASON 2013. OTHER: STATES HE IS DOING THE EX'S HE WAS SHOWED IN THE HOSPITAL FOR ONE SET OF 15 2X'S A DAY. OTHER: PATIENT STATES HE IS CURRENTLY LIVING WITH HIS SISTER IN A MOBILE HOME WITH ABOUT 6 STEPS INTO HOME - MANAGING THEM WITHOUT DIFFICULTY. - Objective THIS PATIENT AMBULATES INDEP'LY INTO PT WITH A FWW. HE IS LEANING HEAVILY ON THE WALKER AND HAS AN ANTLAGIC GAIT PATTERN WITH DECREASED CADANCE AND DECREASED BENNY STRIDE LENGTH. HE IS ABLE TO INDEP'LY TRANSFER FROM SIT TO STAND AND REVERSE BUT IT IS DIFFICULT AND AND HE IS VERY UE DEPENDENT TO DO SO. HE IS ABLE TO INDEP'LY TRANSFER SIT TO SUPINE BUT REQUIRES MIN ASSIST WITH HIS RIGHT LE TRANSFERING SUPINE TO SIT AT EOB. BENNY LE LIGHT TOUCH SENSATION APPEARS TO BE INTACT AND SYMMETRICAL. HIS INCISION IS COVERED WITH A BANDAGE BUT THERE IS NOT REDNESS AROUND THE EDGES OF THE BANDAGE. THERE IS MODERATE RIGHT LE EDEMA WITH GIRTH MEASUREMENTS: MID PATELLA 18.75, 5 INCH PROX TO MID PATELLA 22, 5 INCH DISTAL TO MID PATELLA 16.75, ANKLE 10. MMT: LLE - HIP FLEX 3+/5, KNEE EXT 4-/5, KNEE FLEX 4/5, ANKLE DORSIFLEX 5/5. RLE - HIP FLEX 2+/5, KNEE EXT 3-/5, KNEE FLEX 3-/5, ANKLE DORSIFLEX 5/5. ROM: RIGHT KNEE AROM IN SUPINE WITH A HEEL SLIDE = FULL EXTENSION TO 105 DEG FLEX. LEFT KNEE 0 DEG EXT TO 95 DEG FLEX (PATIENT REPORTS HE ALSO KNEES LEFT KNEE SURGERY). TREATMENT: RIGHT HIP STRENGTHEING WITH ACTIVE ASSISTED SLR WITH FOCUS ON ECCENTRIC STRENGTHENING TOLERATED. REVIEWED HEP - AP'S, QS'S, GS'S, HEEL SLIDES AND SELF AA SLR'S WITH TOWEL/SHEET. RECOMMENDED BOLT THREADER ASSIST WITH SLR'S. PATIENT DEMONSTRATED AND COMMUNICATED A GOOD UNDERSTANDING OF ALL INSTRUCTIONS AFTER GIVEN. ASSISTED SLR'S PROVOKED A LOT OF RIGHT HIP PAIN BUT IT DID NOT REMAIN WORSE A RESULT. - Goals Goal 1:: DECREASE C/O RIGHT HIP PAIN Goal Time Frame: 6-8 Weeks Goal 2:: DECREASE RIGHT LE EDEMA Goal Time Frame: 6-8 Weeks Goal 3:: IMPROVE FUNCTIONAL ROM OF RIGHT LE. Goal Time Frame: 6-8 Weeks Goal 4:: IMPROVE FUNCTIONAL STRENGTH OF RIGHT LE. Goal Time Frame: 6-8 Weeks Goal 5:: INDEP AND SAFE GAIT ON ALL SURFACES WITH LEAST ASSISTIVE DEVICE. Goal Time Frame: 6-8 Weeks Goal 6:: INDEP HEP Goal Time Frame: 6-8 Weeks - Rehabilitation Potential Rehabilitation Potential: Fair - Anticipated Interventions Patient/Client Instruction: Educate patient on: Condition, Plan of Care, Risk Factors, Benefits of Fitness Program For the Purpose of:: To improve self management Therapeutic Exercise to Include: Strength training, Endurance training, Balance training, Body mechanics, Postural training, Gait and locomotor training, Active ROM For the Purpose of:: To decrease pain, To increase ROM, To improve muscle performance and motor function, To improve ability to perform ADL's, To increase tolerance to activity/condition/position, To improve ability of physical actions for home/community/work/leisure, To improve gait and locomotor functions Cryotherapy (ice pack, ice massage): Yes For the Purpose of:: To decrease pain, To decrease swelling/inflammation Thank you for the opportunity to evaluate your patient. For Medicare and Medicare HMO plans, please review the plan of care and approve it. It will need to be FAXED BACK to us at [phone] for Medicare purposes. Please let me know if there are questions or concerns regarding this plan of care. Physician Signature: Date:
--- NOTE | 2018-02-20 11:40 | HP.PTREVAL_ITS ---
Adin Quesada, DO, It has been my pleasure to treat JOSE ALBERTO SAINZ over the last 8 visits for S/ P RIGHT THR 01/20/[address] QUESADA. Please see the progress note below for an update on the physical therapy plan of care! Subjective: PATIENT REPORTS HE NOW HAS MORE MOTION IN HIS LEFT HIP AND IT DOESN' T HURT LIKE IT DID AT EVALUATION. HE ALSO REPORTS HIS HIP IS STRONGER AND HE IS WALKING BETTER. NO LONGER USING THE WALKER AND USING THE CANE ALL THE TIME. WHEN HE TRIES TO WALK WITHOUT THE CANE HE LIMPS AND HAS TO HOBBLE. TOOK PAIN MEDICINE BEFORE COMING TO PT TODAY. PATIENT ALSO REPORTS HIS RIGHT LE SWELLING IS GETTING A LOT BETTER. Objective/Function: GOOD PROGRESS TOWARD ALL PT GOALS. LEFT LE IS A LIMITING FACTOR IN REHAB. THIS PATIENT AMBULATES INDEP'LY INTO PT WITH A STRAIGHT CANE. HE IS LEANING FAIRLY HEAVILY ON THE CANE AND HAS AN ANTLAGIC GAIT PATTERN WITH DECREASED CADANCE AND DECREASED BENNY STRIDE LENGTH AND LIMP ON BENNY LE'S. HE IS ABLE TO INDEP'LY TRANSFER FROM SIT TO STAND AND REVERSE EASILY TODAY WITH MODERATE ONE UE ASSIST. HE IS ABLE TO INDEP'LY TRANSFER SIT TO SUPINE EASILY TODAY WITHOUT UE ASSIST. BENNY LE LIGHT TOUCH SENSATION APPEARS TO BE INTACT AND SYMMETRICAL. HIS INCISION IS VISIBLE TODAY AND LOOKS TO BE WELL HEALING WITHOUT ANY SIGNS OF INFECTION. THERE IS MODERATE RIGHT LE EDEMA THAT HAS IMPROVED SINCE INITIAL EVAL. MMT: RLE - HIP FLEX 3+/5, KNEE EXT 4/5, KNEE FLEX 4+/5, ANKLE DORSIFLEX 5/5. ROM: RIGHT KNEE AROM IN SUPINE WITH A HEEL SLIDE = FULL EXTENSION TO 125 DEG FLEX. LEFS HAS IMPROVED FROM 12 TO 35. PATIENT REPORTS HE IS SUPPOSED TO BE WEARING COMPRESSION HOSE BUT DOESN'T ALWAYS AND DIDN'T TODAY. ENCOURAGED PATIENT TO WEAR THEM PRESCRIBED. PATIENT IS A GOOD CANDIDATE TO CONT PT. Plan Plan: CONT PER POC 2-3 TIMES A WEEK X 4-6 WEEKS. PATIENT IS AGREEABLE. Goals Goal 1:: DECREASE C/O RIGHT HIP PAIN Goal Time Frame: 6-8 Weeks Goal 2:: DECREASE RIGHT LE EDEMA Goal Time Frame: 6-8 Weeks Goal 3:: IMPROVE FUNCTIONAL ROM OF RIGHT LE. Goal Time Frame: 6-8 Weeks Goal 4:: IMPROVE FUNCTIONAL STRENGTH OF RIGHT LE. Goal Time Frame: 6-8 Weeks Goal 5:: INDEP AND SAFE GAIT ON ALL SURFACES WITH LEAST ASSISTIVE DEVICE. Goal Time Frame: 6-8 Weeks Goal 6:: INDEP HEP Goal Time Frame: 6-8 Weeks Anticipated Interventions Patient/Client Instruction: Educate patient on: Condition, Plan of Care, Risk Factors, Benefits of Fitness Program For the Purpose of:: To improve self management Therapeutic Exercise to Include: Strength training, Endurance training, Balance training, Body mechanics, Postural training, Gait and locomotor training, Active ROM For the Purpose of:: To decrease pain, To increase ROM, To improve muscle performance and motor function, To improve ability to perform ADL's, To increase tolerance to activity/condition/position, To improve ability of physical actions for home/community/work/leisure, To improve gait and locomotor functions Cryotherapy (ice pack, ice massage): Yes For the Purpose of:: To decrease pain, To decrease swelling/inflammation Please do not hesitate to contact me at [phone] by phone or Fax: if you have questions or concerns regarding this new plan of care! Sincerely, Becca Garcia
--- NOTE | 2018-03-13 13:17 | HP.PT.NRP ---
HP - Discharge Summary (1) - Patient Information JOSE ALBERTO SAINZ was seen in my office for initial evaluation on 01/28/18. The following Plan of Care was established for this patient: Initial Frequency: 3x /Week Initial Duration: 6 Weeks - Anticipated Interventions Patient/Client Instruction: Educate patient on: Condition, Plan of Care, Risk Factors, Benefits of Fitness Program For the Purpose of:: To improve self management Therapeutic Exercise to Include: Strength training, Endurance training, Balance training, Body mechanics, Postural training, Gait and locomotor training, Active ROM For the Purpose of:: To decrease pain, To increase ROM, To improve muscle performance and motor function, To improve ability to perform ADL's, To increase tolerance to activity/condition/position, To improve ability of physical actions for home/community/work/leisure, To improve gait and locomotor functions Cryotherapy (ice pack, ice massage): Yes For the Purpose of:: To decrease pain, To decrease swelling/inflammation This patient was last seen in our office . Pertinent comments regarding their Physical therapy will appear below: This patient has not returned to Physical Therapy and is appropriate to return to MD for further follow-up as needed. At this point I will be discontinuing this patient from physical therapy. I would be happy to see this patient again in the future if found appropriate by the physician. Thank you! Becca Garcia
== END 2018-02-27 19:00 | disposition home or self-care (01) ==
LOC: PT 12:00
PROVIDERS: Family Provider Nurse Practitioner Primary Care; PCP Nurse Practitioner Primary Care; Visit Provider Orthopaedic Surgery
DX: Z96.641 Presence of right artificial hip joint (principal)
CPT/HCPCS: 97110; 97162; 97530

== ENCOUNTER → 2018-03-02 12:38 | Outpatient (CLI) | payer MEDICAID, SELFPAY ==
--- NOTE | 2018-03-02 12:40 | RAD_ITS ---
STUDY: X-RAY - PELVIS AND RIGHT HIP REASON FOR EXAM: Male, 47 years old. Postop TECHNIQUE: Radiological exam, hip, unilateral, with pelvis when performed; 2 or 3 views. COMPARISON: January 20, 2018 FINDINGS: There is a non-specific bowel gas pattern. Normal visualized soft tissue structures. There is narrowing with cortical sclerosis and osteophyte formation of the sacroiliac joint consistent with degenerative osteoarthritic changes. Normal bilateral superior and inferior pubic rami. Normal pubic symphysis. Normal bilateral ischial tuberosities. There is a right hip arthroplasty which is in neutral position on the AP view. This slightly towards the medial side on the frog-leg view. This is similar to the postoperative study. There is advanced degenerative change with some remodeling of the left hip joint sclerosis and acetabular spurring. RAD/Hip 2-3 Views with Pelvis IMPRESSION: Status post right hip arthroplasty stable since prior study. Advanced degenerative change of the left hip joint. Electronically Signed: Monika Fink MD at 13:27 EDT Tel , Service support ,
== END ==
PROVIDERS: Family Provider Nurse Practitioner Primary Care; PCP Nurse Practitioner Primary Care; Visit Provider Orthopaedic Surgery
DX: M16.11 Unilateral primary osteoarthritis, right hip (principal)
CPT/HCPCS: 73502

== ENCOUNTER → 2018-03-12 12:02 | Outpatient (CLI) | payer MEDICAID, SELFPAY ==
--- NOTE | 2018-03-12 12:04 | MRI_ITS ---
STUDY: MRI LEFT KNEE REASON FOR EXAM: Male, 47 years old. Left knee pain x9 months TECHNIQUE: Standardized fat and water weighted pulse sequences were obtained in all 3 orthogonal planes. COMPARISON: February 25, 2018 x-ray. FINDINGS: Normal medial meniscus. Normal hyaline cartilage of the medial femorotibial compartment. Normal medial femoral condyle and tibial plateau. There is a partial sprain of the MCL with interstitial and periligamentous edema, series 6 images through . Normal distal semimembranosus, gracilis and semitendinosus tendons. Normal lateral meniscus. There is focal, greater than 50% thickness articular cartilage loss of the lateral femorotibial compartment. Normal lateral femoral condyle and tibial plateau. Normal proximal tibiofibular articulation. Normal lateral collateral (fibular) ligament. Normal popliteus tendon. Normal biceps femoris tendon. Normal anterior cruciate ligament (ACL). Normal posterior cruciate ligament (PCL). There is mild spurring and arthrosis of the patellofemoral articulation. Normal hyaline cartilage of the patellofemoral compartment. Normal medial and lateral patellar retinaculum. Normal quadriceps tendon. There is tendon thickening of the distal patellar tendon, with corticated osseous fragments of the anterior tibial tubercle, consistent with a sequela of remote Bhavik-Schlatter's disease. Normal Hoffa's fat pad. There is a small volume joint effusion. Signal dropout in the skin and subcutaneous of the pretibial region with possible prior surgery. The otherwise visualized osseous structures are unremarkable. MRI/Lower Ext Joint Only (Routine) IMPRESSION: No meniscal tear. Medial collateral ligament sprain. Mild degenerative change. Sequela of prior [place]-Schlatter's disease. Electronically Signed: Jaron Carmichael MD at 14:59 EDT , Service support ,
== END ==
PROVIDERS: Family Provider Nurse Practitioner Primary Care; PCP Nurse Practitioner Primary Care; Visit Provider Orthopaedic Surgery
DX: S83.242A Other tear of medial meniscus, current injury, left knee, initial encounter (principal)
CPT/HCPCS: 73721

== ENCOUNTER → 2022-11-05 | Outpatient (CLI) | payer MEDICARE, SELFPAY ==
--- NOTE | 2022-11-05 12:29 | MRI_ITS ---
STUDY: MRI LEFT SHOULDER REASON FOR EXAM: Male, 52 years old. LEFT shoulder pain and decreased ROM, TECHNIQUE: Standardized fat and water weighted pulse sequences were obtained in all 3 orthogonal planes. COMPARISON: X-ray August 20, 2022 FINDINGS: There is supraspinatus tendinosis with tendon thickening, but without a demonstrated tendon tear. Normal infraspinatus tendon. Normal subscapularis tendon. Normal teres minor tendon. Normal supraspinatus muscle. Normal infraspinatus muscle. Normal subscapularis muscle. Normal teres minor muscle. There is mild osteoarthritis of the glenohumeral articulation. Normal humeral head and visualized proximal humerus. Normal biceps labral complex. Normal intracapsular long biceps tendon. There is tear of the superior labrum adjacent to the biceps anchor, series 4 images 13/20 and 14/20. Normal capsulo- ligamentous complex. Normal rotator interval. 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 There is a Type II morphology (curved), with a neutral orientation. There is no subacromial-subdeltoid bursal fluid. Normal visualized coracohumeral and coracoacromial ligaments. Normal quadrilateral space. Normal axillary space. Normal deltoid muscle. Normal trapezius muscle. MRI/Upper Ext Joint Only(Routine) IMPRESSION: Tendinosis of the supraspinatus. No rotator cuff tear. SLAP lesion with tear of the superior labrum. 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 Electronically Signed: Jaron Carmichael MD at 18:17 EST ,
== END | disposition home or self-care (01) ==
LOC: MRI 12:29
PROVIDERS: PCP Nurse Practitioner Primary Care; Referring Provider Orthopaedic Surgery Sports Medicine; Visit Provider Orthopaedic Surgery Sports Medicine
DX: M75.42 Impingement syndrome of left shoulder (principal)
CPT/HCPCS: 73221

== ENCOUNTER 2022-12-12 08:07 | Outpatient (RCR) | payer MEDICARE, MEDICAID, SELFPAY ==
[2022-12-12 08:38] VITALS: BP 140/79; PULSE 56; RESP 16; TEMP 35.6; BMI 36.3
--- NOTE | 2022-12-12 13:11 | PCM.WC.HP ---
History of Present Illness Date of Service: 12/12/22 Chief Complaint: Right Great Toe Pain History of Wound: Mr. 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 Initially noted in June. He states that he woke up in the morning with significant pain and discoloration of his right great toe. He notes that pain and discoloration is worse when his extremities are cold and somewhat better when warm. Also experiences similar phenomena in his hands as well. Prior to June, does not remember having any significant concerns with his extremities. Has been Nitropaste to his toe with no significant change. There is no actual opening or drainage. Chronic history of tobacco abuse. Documented history of diabetes mellitus. He states that he had vascular studies done by Podiatry and to the best of his knowledge, no concerns were noted. He feels well otherwise. [facility] Medical History (Updated 12/12/22 @ 13:[address] 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 Abn findings-GI tract Chest pain Epigastric abdominal pain ETOH abuse Gastritis History of tobacco use Internal impingement of left shoulder Left shoulder pain Medial meniscus tear Osteoarth NOS-unspec Pain of right great toe Raynaud phenomenon Syncope TIA (transient ischemic attack) Tobacco abuse Home Medications celecoxib 200 mg capsule 200 mg PO BID 08/20/22 [History Last Taken Unknown] dulaglutide 3 mg/0.5 mL subcutaneous pen injector (Trulicity) mg subcut QWEEK 08/20/22 [History Last Taken Unknown] gabapentin 600 mg tablet 600 mg PO TID 08/20/22 [History Last Taken Unknown] glipizide 5 mg tablet 5 mg PO DAILY 12/12/22 [History Last Taken Unknown] nitroglycerin 0.4 % (w/w) rectal ointment 1 inch [place] BID 12/12/22 [History Last Taken Unknown] Allergy/AdvReac Type Severity Reaction Status Date / Time Penicillins Allergy Severe Anaphylaxis Verified 10/01/22 09:15 tramadol Allergy Severe Hives Verified 10/01/22 09:15 Family History Mother CVA (cerebral vascular accident) Surgical History (Updated 08/20/22 @ 10:26 by Kelsey Russell) H/O arthroscopy of right knee H/O total hip arthroplasty Status post lumbar surgery Social History (Updated 08/20/22 @ 10:27 by Kelsey Russell) Smoking Status: Current every day smoker tobacco type: cigarettes Smokeless tobacco user: chewing tobacco alcohol intake: never ROS Constitutional Constitutional: Denies fatigue, fever(s), headache(s), increased appetite, lethargy, malaise or night sweats Eyes Eyes: Denies double vision, dry eyes, erythema, excessive blinking, irritation or loss of peripheral vision ENT HEENT: Denies epistaxis, halitosis, headache(s), hearing loss, hoarseness, lip swelling or loss taste/smell Cardiovascular Cardiovascular: Denies claudication, cyanosis, diaphoresis, dizziness, dyspnea at rest or lightheadedness Respiratory/Chest Respiratory/Chest: Denies chest tightness, cough, excessive phlegm production, hemoptysis, hoarseness, inability to speak or restlessness Gastrointestinal Gastrointestinal: Denies bloating, cramping, dry heaves, dyspepsia, dysphagia, excessive flatus or fecal incontinence Genitourinary Genitourinary: Denies abdominal discomfort, anuria, difficulty urinating, flank pain, itching or urinary incontinence Musculoskeletal Musculoskeletal: Reports difficulty walking; Denies atrophy, loss of height, muscle cramps or muscle weakness Integumentary Integumentary: Denies bleeding lesions, furuncle, hirsutism, jaundice, nail changes, photosensitivity or skin swelling Neurologic Neurologic: Denies confusion, convulsions, disequilibrium, dizziness, focal weakness, frequent falls, headache(s), lack of coordination or loss of vision Psychiatric Psychiatric: Denies auditory hallucinations, behavioral changes, cognitive impairment, confusion, depression, difficulty concentrating or hallucinations Endocrine Endocrinology: Denies deepening of the voice, flushing, heat intolerance, increase in ring/shoe/hat size or palpitations Hematologic/Lymphatic Hematologic/Lymphatic: Denies easy bleeding or easy bruising Allergic/Immunologic Allergic/Immunologic: Denies throat swelling, tongue swelling, hives, urticaria, eczemia, wheezing or asthma Vital Signs Vital Signs Vital Signs: 12/12/22 08:38 Temperature 96.1 F L Temperature Source Temporal Pulse Rate 56 L Respiratory Rate 16 Blood Pressure 140/79 H Blood Pressure Mean 99 Blood Pressure Source Monitor Blood Pressure Position Sitting Blood Pressure Location Right Forearm Oxygen Delivery Method Room Air Weight Weight: 283 lb Body Mass Index (BMI) 36.3 Physical Exam Const alert, oriented x3 and no apparent distress General Appearance: cooperative, comfortable and well kempt HEENT normocephalic, head/scalp atraumatic and hearing grossly normal bilaterally Eyes EOMs intact bilaterally Neck full ROM and supple General: normal visual inspection Resp normal respiratory effort and normal air movement Effort and Inspection: able to speak in complete sentences Cardio regular rate, regular rhythm, S1 normal heart sound and S2 normal heart sound GI soft to palpation and non-tender Extremity no clubbing, cyanosis or edema Skin General Skin Exam: no breakdown and erythema Neuro oriented x3, CN's II-XII intact bilaterally, moves all extremities and no focal motor deficits Psych mental status grossly normal, thought process normal, cooperative and affect normal Debridement Note Debridement Note Post-Debridement Measurements and Additional Note: Post-Debridement Measurements/Treatment - Nurse 1 - General Ulcer Assessment Start: 12/12/22 08:37 Freq: Status: Active Protocol: JAMESON Activity Type Activity Date Activity User E-sign Co-sign Detail Recorded Client Recorded Date Recorded By Document 12/12/22 08:38 [facility] [id number] 12/12/22 08:56 [facility] 12/12/22 08:38 - Today's Visit Information Type of service Initial Visit Arrival Mode Ambulatory Transfer Assistance None Patient Identification Verified (Name & Yes ) Patient Requires Transmission-Based No Precautions Finger Stick Blood Sugar(mg/dl) (if 131 indicated): Blood Sugar Stated by Patient Height and Weight Height 6 ft 2 in Weight 283 lb Weight in Pounds 283.0 lbs Weight Measurement Method Estimated by Patient Body Mass Index (BMI) 36.3 BMI Classification Obese BSA - Allison 2.52 Vital Signs Temperature (97.8 F-99.1 F) 96.1 F L Temperature Source Temporal Pulse Rate (60-100) 56 L Pulse Location Monitor Respiratory Rate (12-18) 16 Respiratory rate source Observation Oxygen Delivery Method Room Air Blood Pressure (90/60-120/80) 140/79 H Blood Pressure Mean 99 Source Monitor Position Sitting Blood Pressure Location Right Forearm History Since Last Visit- (Skip if this is Patient's initial visit) Left Footwear Regular Shoe Right Footwear Regular Shoe Pain Scale: 0-10 Numeric Is Patient Pain Free? No r gr toe -Description Throbbing -Intensity 10 -Duration (hours) Chronic -Pain Behavior No Change in Behavior -Pain Aggravating Factors Sitting -Alleviating Factors/Interventions Distraction, Will continue to monitor, Patient denies need for intervention, Emotional Support Lower Extremity Assessment/ Foot Assessment/ Toe Nail Assessment Right -Lower Extremity Comment (If N/A Above pt had arterial ) studies approx 2 mos ago @ [facility] -Hair Growth on Legs Yes -Hair Growth on Toes No -Temperature of Extremity Cool -Other Deformity No -Prior Foot Ulcer No -Charcot Joint No -Prior Amputation No -Thick No -Discolored No -Deformed No -Improper Length & Hygeine No Left -Lower Extremity Comment (If N/A Above pt had arterial ) studies approx 2 mos ago @ [facility] -Extremity Color Pale -Hair Growth on Legs Yes -Hair Growth on Toes No -Temperature of Extremity Cool -Other Deformity No -Prior Foot Ulcer No -Charcot Joint No -Prior Amputation No -Thick No -Discolored No -Deformed No -Improper Length & Hygeine No Neuropathy Assessment Feet - Top Side and Bottom <Entered> (a) Communication Assessment Preferred language Slovenian Urban 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 No Able to Read Yes Able to Write Yes Communication Tools None Right Hearing Abillity Normal Left Hearing Abillity Normal Visual Assistive Devices None Teaching Assessment Preferences Verbal,Written, Audio/Visual, Demonstration Barriers to Learning None Readiness To Learn Excellent Willingness to Engage in Self Management High Activies Readiness to Engage in Self Management High Activities Anxiety Level Calm Cooperation Cooperative Perception Coherent Interest in Health Problem Asks Questions Education Importance Acknowledges Need Does Patient Smoke tobacco or other No substances Smoking Status Current every day smoker Is Patient Diabetic Yes Functional Assessment Recent Decline in Ability to Perform Denies Any Declines Culture/Restoration/Instrument Adjuster Cultural/Restoration Needs that may affect No Treatment Plan Teaching: Wound Center *Welcome to the Wound Center -Person Taught Patient -Teaching Method Discussion -Response to teaching Verbalize understanding Welcome to the Wound Care Center Slovenian (a) 1 - + WC - Nurse 1 - General Ulcer Measurement Start: 12/12/22 08:37 Freq: Status: Active Protocol: Activity Type Activity Date Activity User E-sign Co-sign Detail Recorded Client Recorded Date Recorded By Document 12/12/22 08:38 [facility] [id number] 12/12/22 08:56 [facility] 12/12/22 08:38 Wound Center Nurse 1 #1- r gr toe -Combined with other wound No -Current Size (cm) - Length 1.2 -Current Size (cm) - Width 0.9 -Current Size (cm) - Depth 0.1 -Total Square Cm 1.08 -Date of Last Picture (Recall this 12/12/22 field) -Photo Taken Yes -Epithelialization None Present -Tunneling No -Undermining/Tunneling No -Circular Undermining No -Exudate Amt None Present -Wound Margin Distinct, Outline Attached -Texture (Vika-wound Skin Appearance) Assessed -Moisture (Vika-wound Skin Appearance) Assessed,Dry/ Scaly -Color (Vika-wound Skin Appearance) Assessed, Ecchymosis -Temperature (Vika-wound Skin No Abnormality Appearance) (Pt Warm) -Tenderness on Palpation (Vika-wound Yes Skin Appearance) -Ulcer Cleansing Rinsed/ Irrigated with Saline -Foul Odor after Cleansing No -Anesthetic Used 5% Lidocaine Gel -Wound Comment(s) area appears as a bruise, pt states is very painful. gets more purple and painful when it's cold out. Right Calf (cm) 37.8 Right Ankle (cm) 22.8 Left Calf (cm) 37.9 Left Ankle (cm) 23.2 WC - Nurse 2 - General Ulcer CM Notes Start: 12/12/22 08:37 Freq: Status: Active Protocol: Activity Type Activity Date Activity User E-sign Co-sign Detail Recorded Client Recorded Date Recorded By Document 12/12/22 09:31 MW [id number] 12/12/22 09:39 MW 12/12/22 09:31 Wound Center Nurse 2 #1- r gr toe -Time 09:32 -Correct Patient Yes -Correct Side, Site, Position Yes -Correct Procedure Yes -Procedure Performed No -Wound/Ulcer Outcome Healed- Epithelialized Pain Scale: 0-10 Numeric Is Patient Pain Free? Yes - Nurse 3 - General Ulcer D/C NN Start: 12/12/22 08:37 Freq: Status: Active Protocol: Activity Type Activity Date Activity User E-sign Co-sign Detail Recorded Client Recorded Date Recorded By Document 12/12/22 09:53 BM[facility] [id number] 12/12/22 09:53 BMF 12/12/22 09:53 Is Patient Pain Free? Yes WC - Visit Discharge Discharge Condition Stable Ambulatory Status Ambulatory Transportation Private Auto Charges/Coding Visit Charges Office Visits / Consults: 71111 OV L3 New Assessment/Plan Assessment/Plan (1) Pain of right great toe: CODE(S): M79.674 - Pain in right toe(s) (2) Tobacco abuse: CODE(S): Z72.0 - Tobacco use (3) Raynaud phenomenon: CODE(S): I73.00 - Raynaud's syndrome without gangrene (4) Diabetes mellitus: CODE(S): E11.9 - Type 2 diabetes mellitus without complications PLAN: Plan Chronic right great toe pain. Initial onset was in June. Slept in his house which was not cold, woke up this morning with significant pain and discoloration of his right great toe. Has been following up with podiatry and patient states that he is being treated for frostbite. History, timing/sequence of event do not support a diagnosis of frostbite. He appears to be having Raynaud's phenomena which may be related to Buerger's disease/small vessel vasculitis/small vessel disease. He also has a documented history of diabetes mellitus, ? type and control. He states that he had vascular studies ordered by podiatry which did not show any significant concerns however this could happen with small vessel disease. He was advised that he would need to be evaluated by vascular surgery and or rheumatology. However, if this is related to be Buerger's disease, he absolutely needs to stop all tobacco/Nicotine use most importantly. He voiced understanding. He was advised to follow-up with his primary care provider to initiate the process for referrals and initial work-up. Will send a copy of this documentation over as well. His questions were answered and he was advised to call with any further questions or concerns. We are unable to provide care at this time as he has no open wounds/ulcers. Discharge from the wound center. This note was generated with [employer] dictation software. It may contain incorrect words, spelling, and punctuation that were not noted in checking the note before signing.
== END 2022-12-24 11:01 | disposition home or self-care (01) ==
LOC: WC 08:07
PROVIDERS: PCP Nurse Practitioner Primary Care; Visit Provider Internal Medicine
DX: M79.674 Pain in right toe(s) (principal); E11.40 Type 2 diabetes mellitus with diabetic neuropathy, unspecified; G89.29 Other chronic pain; I73.00 Raynaud's syndrome without gangrene; Z82.3 Family history of stroke; F17.220 Nicotine dependence, chewing tobacco, uncomplicated
CPT/HCPCS: 99213; G0463

== ENCOUNTER 2023-06-04 07:03 | Day surgery (SDC) | payer MEDICARE, SELFPAY ==
[2023-06-04] VITALS (8 sets, daily range): BP systolic 111–153; BP diastolic 67–90; PULSE 66–78; RESP 16–18; TEMP 36.6–37.1; O2SAT 92–99; BMI 35.9
--- NOTE | 2023-06-04 07:12 | EKG12_ITS ---
Test Reason : PREOP Blood Pressure : / mmHG Vent. Rate : 063 BPM Atrial Rate : 063 BPM P-R Int : 140 ms QRS Dur : 104 ms QT Int : 418 ms P-R-T Axes : 002 014 023 degrees QTc Int : 427 ms Normal sinus rhythm Normal ECG When compared with ECG of 08-OCT-2017 18:45, No significant change was found Confirmed by BETSY SCHMITT ([id number]), greeting card editor LEDA RIVERA ([id number]) on 06/17/2023 9:39:12 AM Referred By: Suraj Burton Confirmed By:BETSY SCHMITT
[2023-06-04] MEDS: Lactated Ringers 1,000 ML 15 ML IV ×2 (07:43→10:20)
[2023-06-04 08:11] LABS: Bedside Glucose 154 mg/dL (74-106)
--- NOTE | 2023-06-04 08:11 | PCM.HP.STD ---
HPI - General HPI Narrative JOSE ALBERTO SAINZ, is a 52 M who presents for left shoulder arthroscopy, subacromial decompression, biceps tenodesis. No changes to h and P. RAB discussed, recovery 1-2 weeks in a sling up to 3 months before heavy lifting. Narcotic counselling. L shoulder marked, patient wishes to proceed. MR#: [id number] Acct: [id number] Name: JOSE ALBERTO SAINZ Rep #: [id number] : 1970 Provider: Dr. Suraj Burton MD Age/Sex: 52/M Location: [facility] [place].[facility] Status: Signed Intake Vital Signs 12/12/2307:38 Height 6 ft 2 in Weight: 283 lb BMI 36.3 BP 140/79 H Position Sitting Respiration 16 Pulse 56 L Temp 96.1 F L Temp Source Temporal Intake Visit Reasons: LEFT SHOULDER Chief Complaint: left shoulder Accompanied by: Self Is patient in pain?: Yes Pain scale (1-10): 8 Allergies Penicillins Allergy (Severe, Verified 10/01/22 09:15) Anaphylaxistramadol Allergy (Severe, Verified 10/01/22 09:15) Hives Medications celecoxib 200 mg capsule 200 mg PO BID 08/20/22 [History Confirmed 05/16/23] dulaglutide 3 mg/0.5 mL subcutaneous pen injector (Trulicity) mg subcut QWEEK 08/20/22 [History Confirmed 05/16/23] gabapentin 600 mg tablet 600 mg PO TID 08/20/22 [History Confirmed 05/16/23] glipizide 5 mg tablet 5 mg PO DAILY 12/12/22 [History Confirmed 05/16/23] nitroglycerin 0.4 % (w/w) rectal ointment 1 inch [place] BID 12/12/22 [History Confirmed 05/16/23] cyclobenzaprine 10 mg tablet mg PO 05/16/23 [History Confirmed 05/16/23] [facility] Medical History (Updated 05/16/23 @ 09:49 by Suraj Burton MD) 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 Abn findings-GI tract Chest pain Epigastric abdominal pain ETOH abuse Gastritis History of tobacco use Internal impingement of left shoulder Left shoulder pain Medial meniscus tear Osteoarth NOS-unspec Pain of right great toe Raynaud phenomenon SLAP lesion of left shoulder Syncope TIA (transient ischemic attack) Tobacco abuse Surgical History H/O arthroscopy of right knee H/O total hip arthroplasty Status post lumbar surgery Family History Mother CVA (cerebral vascular accident) Social History (Updated 05/16/23 @ 09:17 by Kelsey Russell) Smoking Status: Current every day smoker tobacco type: cigarettes Smokeless tobacco user: chewing tobacco alcohol intake: never HPI LEFT SHOULDER Details: Parts of this documentation were recorded by a scribe, this documentation accurately reflects the service provided and the decisions made by me, Dr. Suraj Burton MD 05/16/23 0807. JOSE ALBERTO SAINZ is a 52 year old M here today for FU L shoulder MRI. Patient is still having pain on the lateral aspect of the shoulder radiating down somewhat up into the trapezius as well worse with lifting and at night. Had only partial benefit from cortisone injection Ortho Exam General General: Yes no acute distress Neurologic: Yes alert and Yes oriented x3 Psychologic: Yes reasonable and appropriate Left Shoulder Skin/Wound: Yes CDI, No ecchymosis, No erythema and No swelling Testing: Yes Hawkin's, Yes Neer's, Yes Speed's, Yes TTP Biceps, No TTP AC Joint, No Drop Arm, Yes AROM-Forward Elevation 0-180 and Yes AROM-External Rotation at side 0-60 Supplemental Info [facility] Services [address] [place] [address] Upper Ext Joint Only(Routine) MR#: [id number] Acct: [id number] Name: JOSE ALBERTO SAINZ Rep #: [id number] : 1970 M 52 From: Jaron Carmichael MD PCP: Geovanna Disla 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 LEFT shoulder pain and decreased ROM, TECHNIQUE: Standardized fat and water weighted pulse sequences were obtained in all 3 orthogonal planes. COMPARISON: X-ray August 20, 2022 FINDINGS: There is supraspinatus tendinosis with tendon thickening, but without a demonstrated tendon tear. Normal infraspinatus tendon. Normal subscapularis tendon. Normal teres minor tendon. Normal supraspinatus muscle. Normal infraspinatus muscle. Normal subscapularis muscle. Normal teres minor muscle. There is mild osteoarthritis of the glenohumeral articulation. Normal humeral head and visualized proximal humerus. Normal biceps labral complex. Normal intracapsular long biceps tendon. There is tear of the superior labrum adjacent to the biceps anchor, series 4 images 13/20 and 14/20. Normal capsulo- ligamentous complex. Normal rotator interval. 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 There is a Type II morphology (curved), with a neutral orientation. There is no subacromial-subdeltoid bursal fluid. Normal visualized coracohumeral and coracoacromial ligaments. Normal quadrilateral space. Normal axillary space. Normal deltoid muscle. Normal trapezius muscle. MRI/Upper Ext Joint Only(Routine) IMPRESSION: Tendinosis of the supraspinatus. No rotator cuff tear. SLAP lesion with tear of the superior labrum. 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 Electronically Signed: Jaron Carmichael MD at 18:17 EST , Coding Level of Care Code Off vis,est,level 4 Diagnoses Internal impingement of left shoulder M75.42 Left shoulder pain M25.512 SLAP lesion of left shoulder S43.432A Assessment and Plan Assessment and Plan (1) Internal impingement of left shoulder: Status: Acute Plan: 52-year-old man with left shoulder pain MRI evidence of a SLAP tear and impingement. No rotator cuff tear. Has good range of motion and strength but findings consistent with irritation of the biceps and rotator cuff tendons. Can try continued conservative management including rest ice anti-inflammatories physical therapy and cortisone injections.. These are all options explained to him. Surgical option for him would be left shoulder arthroscopy, subacromial decompression, biceps tenodesis. He would like to go ahead with that. We explained the recovery diagnosis prognosis and aftercare associated with this 2 weeks in a sling up to 6 to 8 weeks before returning back to strengthening activities up to 3 months before heavy lifting. He understands wished to go ahead with surgery I will get a preoperative clearance he is a 1 cigarette a day smoker and does have insulin-dependent diabetes. Pros and cons risks and benefits were discussed with the patient including but not limited to infection, pain, stiffness, bleeding, damage to surrounding structures, neurovascular injury, recurrence or retear, failure or wear of hardware or fixation, instability, fracture, deep vein thrombosis and pulmonary embolism, anesthetic risks, , patient dissatisfaction, need for further surgery and other risks. Patient understood and wished to proceed with surgery, and signed the informed consent documentation. 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 Abn findings-GI tract Arthritis Chest pain Epigastric abdominal pain ETOH abuse Gastritis History of stress test History of tobacco use Internal impingement of left shoulder Left shoulder pain Medial meniscus tear Osteoarth NOS-unspec Pain of right great toe Raynaud phenomenon SLAP lesion of left shoulder Smoker Syncope Syncope TIA (transient ischemic attack) Tobacco abuse Wears glasses Home Medications celecoxib 200 mg capsule 200 mg PO BID 08/20/22 [History Last Taken Unknown] dulaglutide 3 mg/0.5 mL subcutaneous pen injector (Trulicity) 4.5 mg subcut QWEEK 08/20/22 [History Last Taken Unknown] gabapentin 600 mg tablet 600 mg PO TID 08/20/22 [History Last Taken Unknown] cyclobenzaprine 10 mg tablet 10 mg PO Q8H PRN spasm 05/16/23 [History Last Taken Unknown] Allergy/AdvReac Type Severity Reaction Status Date / Time Penicillins Allergy Severe Anaphylaxis Verified 10/01/22 09:15 tramadol Allergy Severe Hives Verified 10/01/22 09:15 Family History Mother CVA (cerebral vascular accident) Surgical History (Updated 05/28/23 @ 09:20 by Melissa Shaikh) H/O arthroscopy of right knee H/O total hip arthroplasty History of cardiac catheterization Status post lumbar surgery Social History (Updated 05/16/23 @ 09:17 by Kelsey Russell) Smoking Status: Light Smoker (<10/day) Smokeless tobacco user: chewing tobacco alcohol intake: never Vital Signs Vital Signs Vital Signs: 06/04/23 07:45 06/04/23 07:45 Temperature 98.5 F Temperature Source Temporal Pulse Rate 66 Respiratory Rate 18 Respiratory Pattern Normal Blood Pressure 134/71 H Blood Pressure Mean 92 Blood Pressure Source Monitor Blood Pressure Position Supine Blood Pressure Location Left Arm Pulse Ox 99 Oxygen Delivery Method Room Air Weight Weight: 280 lb Body Mass Index (BMI) 35.9 Results Lab / Micro Data Labs: Laboratory Results - last 24 hr 06/04/23 07:17: POC Glucose 154 H
[2023-06-04] MEDS: Clindamycin 900 MG/50 ML BAG 75 MG IV (08:50)
--- NOTE | 2023-06-04 09:20 | OP.PCM_ITS ---
Problems Associated Problem List Diagnoses (1) SLAP lesion of left shoulder: (2) Internal impingement of left shoulder: Report of Operation Date of Procedure: 06/04/23 Pre-Operative Diagnosis: left shoulder impingement syndrome and slap tear Post-Operative Diagnosis: same Surgery/Procedure Performed:: left shoulder arthroscopy, sub acromial decompression, biceps tenodesis Surgeon: Suraj Burton Type of Anesthesia: Block,Regional and General Anesthesiologist: Nafi Shelby Estimated Blood Loss (mL): 50 Description of Procedure: Patient brought to the operating room theater. Placed supine on the operating room table. General anesthesia induced. Clindamycin 900 mg IV given due to penicillin anaphylaxis allergy. Patient placed on the left side up lateral decubitus beanbag positioner axillary roll used. SCDs on the legs. Left upper extremity prepped and draped in usual sterile fashion chlorhexidine based solution, allowing over 3 minutes drying time. Preoperative timeout performed to confirm the site patient and surgery. Began by inserting the arthroscope left shoulder into the joint, standard posterior portal. 10 pounds of inline traction with the arm in 45 degrees of abduction was used. Do a full diagnostic arthroscopy. Used inside out spinal needle localization to create an anterior portal through the rotator interval and just posterior to the biceps tendon. Cartilage on the glenoid had grade 2-3 changes gently debrided. The humeral head appeared overall normal perhaps grade 1 changes only. Undersurface the rotator cuff appeared normal. Subscapularis appeared normal. No loose bodies. Moderate fraying circumferentially of the labrum gently debrided. There is an obvious type II SLAP tear with some mild synovitis of the long head of the biceps. I performed an intra-articular biceps tenotomy using the electrocautery device. Patient pictures were taken and saved throughout the case. Next I inserted the arthroscope into the subacromial space. Did a full bursectomy for a moderate amount of bursitis noninflammatory appearing. Subacromial decompression was performed for a moderate size spur and downsloping at the anterolateral edge. Performed this about 4 mm thick. Thorough examination of the rotator cuff and probing revealed no tears. Next turned my attention to performing the biceps tenodesis Made a 2 inch long longitudinal incision centered over the long head of the biceps on the upper proximal medial aspect of the humerus. Carried the dissection down through skin and subcutaneous tissue to meticulous hemostasis. Identified the long head of the biceps. There is a moderate amount of scar tissue that I had to mobilize. I deliver the long head of the biceps through the wound. I used the Arthrex Mayur needle with FiberWire suture to perform a sequential tendon grabbing suture for 5 throws. I locked this distally cut at the splice, and passed the suture ends in opposite directions trough the button. Next identified the site for the biceps repair, at the mid aspect of the upper humerus to perform the tenodesis. I used the spade tip drill I drilled a unicortical hole. I irrigated away any bone dust. I passed the button through the tunnel flipped the button deliver the tendon slightly into the tunnel using the unicortical hole. I then used Cali needle to pass 1 suture then back through the tendon and 5 interrupted half hitches suture was cut short to lock the tendon in place. Wound thoroughly irrigated. Subcutaneous tissue closed with 2-0 Vicryl suture and skin with 3-0 Monocryl. Skin was cleaned with wet and dry dressing. Patient had a block so no local anesthetic was used. Steri- Strips applied followed by Adaptic 4 x 4 gauze ABD pads and cloth tape with abduction pillow sling for the upper extremity. Patient woken up from the general anesthetic transferred off the operating room table and taken to postanesthetic care unit in stable condition. All sponge needle instrument counts were correct. cpt 83889? modifier 51 for second incision biceps tenodesis cpt 56914 Complications none Admit VTE Documentation VTE Present on Admission: No VTE Mechan Device Prophylaxis: SCD's VTE Pharm Prophylaxis ordered?: No Reason prophylaxis not ordered:: Treatment Not Indicated Procedures Musculoskeletal [id number]: Other Procedure See Report
[2023-06-04] MEDS: Epinephrine (1 mg/ml) 1 MG/ML VIAL (09:44)
--- NOTE | 2023-06-04 10:43 | EX.PCM.DISCH ---
Discharge Instructions Diet Discharge Diet: No restrictions Activity Ice area for (Minutes): 10 Lifting Restrictions: pendulums of shoulder, ok for hand wrist elbow rom, no lifting over 1 pound Dressing / Incision Call your doctor if your incision/area has: Continuous Slow Oozing, Sudden Increased Bleeding, Increased Pain/ Swelling, Increased Redness, Foul Smelling Discharge and Swelling at the incision site Change Dressing in: leave in place till F/U Follow Up Care Please Follow Up With: Suraj Burton MD When: 2 days Test Results: Test results from this visit will be discussed in further detail at your follow-up appointment, if applicable. Discharge Plan Admission Attending Provider: Suraj Burton Primary Care Provider: Geovanna Disla NP Discharge Orders/Prescriptions Prescriptions: New oxycodone-acetaminophen [Endocet] 5-325 mg tablet 1 tab PO TID MDD 6 PRN (Reason: pain) 5 Days Qty: 30 0RF No Action gabapentin 600 mg tablet 600 mg PO TID Trulicity 3 mg/0.5 mL pen injector 4.5 mg subcut QWEEK celecoxib 200 mg capsule 200 mg PO BID cyclobenzaprine 10 mg tablet 10 mg PO Q8H PRN (Reason: spasm) Patient Comments: take 1 tablet by mouth three times a day if needed for muscle spasm Referrals / Follow Up: Suraj Burton MD [Med Staff - Active Staff] - Geovanna Disla NP, OPERATIONS ADMINISTRATIVE ASSISTANT-C [Primary Care Provider] - Disposition Disposition (needs filled in before D/C Order can be placed): Home, Self Care
[2023-06-04 11:21] LABS: Bedside Glucose 179 mg/dL (74-106)
== END 2023-06-04 12:38 | disposition home or self-care (01) ==
LOC: SDC 07:07 → AC 07:08
PROVIDERS: PCP Nurse Practitioner Primary Care; Referring Provider Orthopaedic Surgery Sports Medicine; Visit Provider Orthopaedic Surgery Sports Medicine
PROC: (CPT 29805; principal; 2023-06-04 08:30)
DX: S43.432A Superior glenoid labrum lesion of left shoulder, initial encounter (principal); E11.9 Type 2 diabetes mellitus without complications; X58.XXXA Exposure to other specified factors, initial encounter; M19.012 Primary osteoarthritis, left shoulder; M75.42 Impingement syndrome of left shoulder; F17.210 Nicotine dependence, cigarettes, uncomplicated; F17.220 Nicotine dependence, chewing tobacco, uncomplicated; Z79.84 Long term (current) use of oral hypoglycemic drugs; Z79.899 Other long term (current) drug therapy; Z88.0 Allergy status to penicillin
CPT/HCPCS: 29828; 29826; 01630; 64415; 82962; 93005; J7120; J2405

== ENCOUNTER 2023-09-24 12:30 | Outpatient (RCR) | payer MEDICARE, MEDICAID, SELFPAY ==
--- NOTE | 2023-06-13 16:09 | HP.PTEVAL_ITS ---
Patient's Visit Information Visit Information Visit Information: JOSE ALBERTO SAINZ is a 52 year old M referred to Physical Therapy by Dr. Suraj Burton MD with a diagnosis of L SLAP repair 06/04/23. Date of Evaluation: 06/13/23 Physical Therapist: Jeffry Davis, PT, ATC Visit Plan Frequency: 2-3x /Week Duration: 4-6 Weeks Plan: L shoulder PROM x 4 weeks with 90 limit of flexion/abd, then AROM x 4 w eeks. Begin strengthening at 8 weeks post op consisting of rot cuff strengthning, scap stab ex's, UBE, and HEP Subjective Subjective: DOS: 06/04/23. Pt reports he had surgery to repair a slap lesion of his L shoulder. Pt reports his injury had an insidious onset, and notes he has no idea how this happened. Pt reports his shoulder is still very sore when he moves it. Pt notes he has significant sleep difficulty secondary to pain. Pt notes he is R hand dominant. Pt denies tingling or numbness in L UE. Pt reports he is on disability at this time. Pt denies any PMHx of L shoulder complications prior to this episode. Pt reports the only orders he has been given at this time is to wear the sling, and to avoid lifting with his L shoulder at this time. L shoulder pain is 3/10 while sitting here in the clinic. Pt notes his pain increases to 8/10 at worst. Pain L shoulder: Pain Intensity (Out of 10): 3 Pain Intensity Range: 8 Objective Objective: Neuro: B UE sensation is WNL to light touch throughout. B bicipital reflex= 2/3 AROM: R shoulder flex= 160, abd= 150, IR= WNL, ER= 10 degrees; L shoulder flex= 60, abd= 60, IR= severely limited, ER= 0 degrees MMT: R shoulder flex= 22, abd= 31, ER= 18, IR= 25 #F; L not tested this date Balance/Special Test Scores Quick DASH Score: 38.6350 Goals Goal 1:: Decrease L shoulder pain x 50% to aid with sleep Goal Time Frame: 6-8 Weeks Goal 2:: Increase L shoulder flex and abd ROM x 50 degrees to aid with overhead lifting Goal Time Frame: 6-8 Weeks Goal 3:: Increase L shoulder strength to within 90% of the R shoulder strength to aid with IADL's Goal Time Frame: 6-8 Weeks Goal 4:: I with HEP Goal Time Frame: 6-8 Weeks Rehabilitation Potential Physical Therapy Diagnosis: Pt has L shoulder pain, weakness, and limited ROM secondary to L SLAP repair Rehabilitation Potential: Good Anticipated Interventions Patient/Client Instruction: Educate patient on: Condition and Plan of Care For the Purpose of:: To improve self management Therapeutic Exercise to Include: Strength training, Endurance training, Flexibilty training, Passive ROM, Active ROM and Scapular Strength/Stabilization For the Purpose of:: To decrease pain, To increase ROM and To improve muscle performance and motor function Cryotherapy (ice pack, ice massage): Yes For the Purpose of:: To decrease pain Text: Thank you for the opportunity to evaluate your patient. For Medicare and Medicare HMO plans, please review the plan of care and approve it. It will need to be FAXED BACK to us at [phone] for Medicare purposes. For Medicare only, by signing this I certify the plan of care. Please let me know if there are questions or concerns regarding this plan of care. Physician Signature: Date:
--- NOTE | 2023-08-11 16:01 | HP.PTREVAL ---
Re-Evaluation Intro: Dr. Suraj Burton MD, It has been my pleasure to treat JOSE ALBERTO SAINZ over the last 7 visits for L SLAP repair 06/04/23. Please see the progress note below for an update on the physical therapy plan of care! Subjective Subjective: My pain is about a 1 or 2/10. Mostly just achy Objective Objective/Function: L shoulder ROM: flex= 125, abd= 85, ER= 0 L shoulder MMT: flex= 13, abd= 21, ER= 13, IR= 8 #F Pt is progressing well in all aspects at this time. Plan Plan Plan: Cont to focus on ROM and initiate strengthening at this time. Balance/Gait/Functional tests Balance/Special Test Scores Quick DASH Score: 18.1800 Goals Goals Goal 1:: Decrease L shoulder pain x 50% to aid with sleep Goal Time Frame: 6-8 Weeks Goal Progress: Progressing Goal 2:: Increase L shoulder flex and abd ROM x 50 degrees to aid with overhead lifting Goal Time Frame: 6-8 Weeks Goal Progress: Progressing Goal 3:: Increase L shoulder strength to within 90% of the R shoulder strength to aid with IADL's Goal Time Frame: 6-8 Weeks Goal Progress: Progressing Goal 4:: I with HEP Goal Time Frame: 6-8 Weeks Goal Progress: Progressing Anticipated Interventions Anticipated Interventions Patient/Client Instruction: Educate patient on: Condition and Plan of Care For the Purpose of:: To improve self management Therapeutic Exercise to Include: Strength training, Endurance training, Flexibilty training, Passive ROM, Active ROM and Scapular Strength/Stabilization For the Purpose of:: To decrease pain, To increase ROM and To improve muscle performance and motor function Cryotherapy (ice pack, ice massage): Yes For the Purpose of:: To decrease pain Re-Evaluation Ending Re-evaluation ending: Please do not hesitate to contact me at [phone] by phone or if you have questions or concerns regarding this new plan of care! Sincerely, Jeffry Davis, PT, ATC
== END 2023-09-24 19:00 | disposition home or self-care (01) ==
LOC: PT 12:30
PROVIDERS: PCP Nurse Practitioner Primary Care; Referring Provider Orthopaedic Surgery Sports Medicine; Visit Provider Orthopaedic Surgery Sports Medicine
DX: S43.432D Superior glenoid labrum lesion of left shoulder, subsequent encounter (principal)
CPT/HCPCS: 97110; 97140; 97161; 97164